=== PATIENT | male | born 1950 | race Caucasian/White ===

== ENCOUNTER 2017-06-11 19:37 | Emergency (ER) | payer OTHER ==
[~2017-06-11] VITALS: Ht 177.8 cm; Wt 149.7 kg
[~2017-06-11 19:37] MED LIST: Flomax0.4 MG PO; HYDACE5 PO; MECL25 PO; Percocet 5-3251 EACH PO; RXCYCL10 PO
[2017-06-11 20:04] LABS: BASOPHILS ABSOLUTE AUTO 0.04 K/mm3 (0.00-0.23); BASOPHILS PERCENT AUTO 0 % (0-2); EOSINOPHILS ABSOLUTE AUTO 0.24 K/mm3 (0.00-0.68); EOSINOPHILS PERCENT AUTO 2 % (0-6); Hematocrit 45.3 % (37.0-53.0); Hemoglobin 13.8 g/dL (13.5-17.5); IMMATURE GRAN ABSOLUTE AUTO 0.07 K/mm3 (0.00-0.10); IMMATURE GRAN PERCENT AUTO 1 % (0-1); LYMPHOCYTES ABSOLUTE AUTO 2.34 K/mm3 (0.84-5.20); LYMPHOCYTES PERCENT AUTO 21 % (21-46); MONOCYTES ABSOLUTE AUTO 0.66 K/mm3 (0.16-1.47); MONOCYTES PERCENT AUTO 6 % (4-13); Mean Corpuscular HGB 25.1 pg (26.0-34.0); Mean Corpuscular HGB Conc 30.5 g/dL (31.5-36.5); Mean Corpuscular Volume 83 fL (80-100); Mean Platelet Volume 10.8 fL (9.1-12.4); NEUTROPHILS ABSOLUTE AUTO 7.57 K/mm3 (1.96-9.15); NEUTROPHILS PERCENT AUTO 69 % (41-73); Platelet Count 292 K/mm3 (150-400); RDW Coefficient Variation 14.3 % (11.7-14.2); RDW Standard Deviation 42.9 fL (35.1-46.3); Red Blood Cell Count 5.49 M/mm3 (4.30-5.90); White Blood Cell Count 10.92 K/mm3 (4.00-11.30)
[2017-06-11 20:24] LABS: Alanine Aminotransfer (ALT/SGP 54 U/L (12-78); Albumin, Blood 3.4 g/dL (3.4-5.0); Albumin/Globulin Ratio 0.7 (0.8-1.8); Alk Phos 73 U/L (50-136); Anion Gap 5 mmol/L (6-16); Aspartate Aminotrans (AST/SGOT 52 U/L (12-37); Bilirubin, Total 0.3 mg/dL (0.1-1.0); Blood Urea Nitrogen 16 mg/dL (8-24); Bun/Creatinine Ratio 19.3 (12.0-20.0); CO2, Blood 26 mmol/L (21-32); Chloride, Blood 108 mmol/L (98-108); Creatinine, Blood 0.83 mg/dL (0.60-1.20); Glomerular Filtration Rate >60 (60-); Glucose, Blood 195 mg/dL (70-99); Potassium, Blood 3.9 mmol/L (3.5-5.5); Sodium, Blood 139 mmol/L (136-145); Total Protein, Blood 8.4 g/dL (6.4-8.2)
[2017-06-11 20:36] LABS: Source, Urine Clean Catch
[2017-06-11 20:41] LABS: Bilirubin, Urine Neg (Neg); Blood, Urine 1+ (Neg); Glucose Qualitative, Urine Neg (Neg); Ketones, Urine 1+ (Neg); Leukocyte Esterase, Urine 1+ (Neg); Nitrite, Urine Neg (Neg); Protein, Urine 1+ (Neg); Urobilinogen, Urine 1+ (Normal)
[2017-06-11 20:50] LABS: Color, Urine Yellow (P-Yellow)
[2017-06-11 20:51] LABS: Amorphous Light (0-Heavy); Appearance, Urine Hazy (Clear); Bacteria Few /hpf; Mucus Light (0-Heavy); Squamous Epithelial Cells Mod /hpf (Few)
[2017-06-11] MEDS ORDERED: CEPH500 PO (22:13)
== END 2017-06-11 22:27 | disposition home or self-care (01) ==
LOC: ER 19:37
PROVIDERS: Emergency Medicine; Physician Assistant
DX: R35.0 Frequency of micturition (principal); R10.12 Left upper quadrant pain; E66.01 Morbid (severe) obesity due to excess calories; Z87.891 Personal history of nicotine dependence; Z68.42 Body mass index [BMI] 45.0-49.9, adult
CPT/HCPCS: 36415; 74176; 80053; 81001; 85025; 87086; 87147; 96374; 96375; 99284; J1885; J2550

== ENCOUNTER 2018-06-07 09:21 | Observation (INO) | payer OTHER ==
[~2018-06-07] VITALS: Ht 177.8 cm; Wt 137.1 kg
[~2018-06-07 09:21] MED LIST changes: +CEPH500 PO
[2018-06-07 10:08] LABS: BASOPHILS ABSOLUTE AUTO 0.02 K/mm3 (0.00-0.23); BASOPHILS PERCENT AUTO 0 % (0-2); EOSINOPHILS ABSOLUTE AUTO 0.01 K/mm3 (0.00-0.68); EOSINOPHILS PERCENT AUTO 0 % (0-6); Hematocrit 41.4 % (37.0-53.0); Hemoglobin 12.6 g/dL (13.5-17.5); IMMATURE GRAN ABSOLUTE AUTO 0.03 K/mm3 (0.00-0.10); IMMATURE GRAN PERCENT AUTO 0 % (0-1); LYMPHOCYTES ABSOLUTE AUTO 0.76 K/mm3 (0.84-5.20); LYMPHOCYTES PERCENT AUTO 8 % (21-46); MONOCYTES ABSOLUTE AUTO 1.03 K/mm3 (0.16-1.47); MONOCYTES PERCENT AUTO 11 % (4-13); Mean Corpuscular HGB 25.7 pg (26.0-34.0); Mean Corpuscular HGB Conc 30.4 g/dL (31.5-36.5); Mean Corpuscular Volume 84 fL (80-100); Mean Platelet Volume 10.6 fL (9.1-12.4); NEUTROPHILS ABSOLUTE AUTO 7.33 K/mm3 (1.96-9.15); NEUTROPHILS PERCENT AUTO 80 % (41-73); Platelet Count 348 K/mm3 (150-400); RDW Coefficient Variation 15.9 % (11.7-14.2); RDW Standard Deviation 48.9 fL (35.1-46.3); Red Blood Cell Count 4.91 M/mm3 (4.30-5.90); White Blood Cell Count 9.18 K/mm3 (4.00-11.30)
[2018-06-07 10:27] LABS: Alanine Aminotransfer (ALT/SGP 25 U/L (12-78); Albumin, Blood 3.4 g/dL (3.4-5.0); Albumin/Globulin Ratio 0.8 (0.8-1.8); Alk Phos 66 U/L (50-136); Anion Gap 11 mmol/L (6-16); Aspartate Aminotrans (AST/SGOT 21 U/L (12-37); Bilirubin, Total 0.5 mg/dL (0.1-1.0); Blood Urea Nitrogen 36 mg/dL (8-24); Bun/Creatinine Ratio 15.9 (12.0-20.0); CO2, Blood 18 mmol/L (21-32); Calcium, Blood 8.1 mg/dL (8.5-10.1); Chloride, Blood 107 mmol/L (98-108); Creatinine, Blood 2.26 mg/dL (0.60-1.20); Globulin, Blood 4.5 g/dL (2.2-4.0); Glomerular Filtration Rate 31 (60-); Glucose, Blood 228 mg/dL (70-99); Potassium, Blood 3.6 mmol/L (3.5-5.5); Sodium, Blood 136 mmol/L (136-145); Total Protein, Blood 7.9 g/dL (6.4-8.2); Troponin I <0.015 ng/mL (0.000-0.040)
[2018-06-07] MEDS ORDERED: PIOG30 PO (10:51)
--- NOTE | 2018-06-07 16:18 | NUR ---
RECEIVED HANDOFF REPORT FROM ED NURSE VERONICA PT SOB AND DYSPNEIC W/ACTIVITY FOR PAST WEEK. PT LIVES AT HOME, SISTER IS CAREGIVER. ROOM AIR. FULL CODE. SISTER STATES PT MENTALLY DELAYED (10-12 YR OLD COGNITION). PT RAN TACHY IN ER - 100'S BPM. PT HAS IV IN LEFT AC 20 . ADA DIET. FLORENTINO HOSE/LOVENOX. HX: DIABETES 2. PT HAS HEMORRHOIDS. PT UNSTEADY ON HIS FEET. PT PREFERS TO LAY FLAT WHEN SOB. PT DOES NOT USE HIS CPAP (FAMILY STATES MACHINE CONFUSED THEM).
--- NOTE | 2018-06-07 18:29 | NUR ---
SHIFT SUMMARY 67 YR OLD MALE. FULL CODE. ADMITTED FOR SOB W/EXERTION AND DYSPNEA FOR PAST WEEK. PT HAS COGNITIVE CHALLENGES, LEARNING DISABILITIES. PT STOPPED USING CPAP DEVICE FAMILY STATED IT WAS TOO COMPLEX TO OPERATE. PT AND FAMILY HAVE STOPPED CERTAIN MEDICATIONS THEY WERE TOO EXPENSIVE. PT RECEIVING NS KCL AT 100 ML/HR. PT STILL REFUSING TO EAT HE IS WORRIED ABOUT NAUSEA. PHYSICAL THERAPY STATES HE IS A 1 ASSIST BUT MAY BE IMPULSIVE. BED ALARM IS ON.
[2018-06-08 05:30] LABS: BASOPHILS ABSOLUTE AUTO 0.01 K/mm3 (0.00-0.23); BASOPHILS PERCENT AUTO 0 % (0-2); EOSINOPHILS ABSOLUTE AUTO 0.01 K/mm3 (0.00-0.68); EOSINOPHILS PERCENT AUTO 0 % (0-6); Hematocrit 40.9 % (37.0-53.0); Hemoglobin 12.5 g/dL (13.5-17.5); IMMATURE GRAN ABSOLUTE AUTO 0.03 K/mm3 (0.00-0.10); IMMATURE GRAN PERCENT AUTO 1 % (0-1); LYMPHOCYTES PERCENT AUTO 20 % (21-46); MONOCYTES PERCENT AUTO 13 % (4-13); Mean Corpuscular HGB 25.7 pg (26.0-34.0); Mean Corpuscular HGB Conc 30.6 g/dL (31.5-36.5); Mean Corpuscular Volume 84 fL (80-100); Mean Platelet Volume 10.3 fL (9.1-12.4); NEUTROPHILS ABSOLUTE AUTO 3.54 K/mm3 (1.96-9.15); NEUTROPHILS PERCENT AUTO 66 % (41-73); Platelet Count 318 K/mm3 (150-400); RDW Coefficient Variation 15.9 % (11.7-14.2); Red Blood Cell Count 4.87 M/mm3 (4.30-5.90); White Blood Cell Count 5.39 K/mm3 (4.00-11.30)
[2018-06-08 05:45] LABS: Bun/Creatinine Ratio 24.6 (12.0-20.0); Calcium, Blood 8.4 mg/dL (8.5-10.1); Creatinine, Blood 1.75 mg/dL (0.60-1.20)
--- NOTE | 2018-06-08 06:44 | NUR ---
NOC SHIFT SUMMARY PT HAS BEEN PLEASANT AND COOPERATIVE WITH CARE THIS NIGHT. HE HAS STAYED IN BED AND MOSTLY SLEPT THIS NIGHT. EARLY IN THE MORNING HE AWOKE COMPLAINING OF STOMACH PAIN ON THE LEFT LOWER AND UPPER QUADRANTS. FEELS LIKE STOMACH IS TWISTING. STATES HE HAS HAD THIS PAIN BEFORE AND IT CAN LAST FOR DAYS. PT STATES HE HAD AN EXTRA LARGE BM ON PREVIOUS DAY. HE HAS NOT EATEN FOR PAST DAY OR TWO DUE TO FEAR OF VOMITING. TRIED ZOFRAN IV FOR FEELING OF STOMACH TWISTING WITH NO IMPROVMENT. CALLED TO HOSPITALIST AND RECIEVED ORDER FOR FENTYNAL FOR PAIN. PT IS CURRENTLY SLEEPING LIGHTLY IN BED. WILL REPORT TO ONCOMING RN.
--- NOTE | 2018-06-08 10:26 | NUR ---
PT STATUS PT IS REFUSING TO EAT, HE STATES THAT HE FEARS HE WILL THROW UP OR HIS TUMMY WILL START HURTING IF HE DOES. HIS FAMILY REPORTS THAT HE HAS BEEN REFUSING TO EAT AT HOME ALSO.
--- NOTE | 2018-06-08 15:55 | NUR ---
PT STATUS - EATING PT HAS NO TEETH. OFFICE MACHINE EMBOSSOGRAPH OPERATOR ORDERING SOFTER FOODS, IN THE HOPES THAT THIS WILL ENCOURAGE HIM TO EAT. PT DID EAT A SMALL AMOUNT OF HIS SOFT BURRITO AND SOME SOUP. HE HAS STATED HE HAS SEVERE PAIN SINCE EATING THOSE FOODS. MEDICATED PER EMAR. NONETHELESS, PT STILL COMPLAINING OF ABD. PAIN.
--- NOTE | 2018-06-08 18:18 | NUR ---
PT STATUS I ASKED ÁLVARO TO PLACE A HAT IN THE TOILET. TO RULE OUT A DIFFERENT ISSUE WITH THIS STOMACH PAIN. I WANTED TO VIEW STOOL MYSELF. WITH THE NEXT BOWEL MOVEMENT, ÁLVARO REPORTED LARGE CLOT IN WATERY STOOL. SHE HAD ALREADY DUMPED THE HAT IN TOILET AND FAILED TO COLLECT CLOT. STOOL SMELLS LIKE ROTTEN BOWEL. CALLED HOSPITALIST AND HE ORDERED GI PANEL/GUAIAC TEST. THOSE SAMPLES HAVE BEEN SENT.
--- NOTE | 2018-06-08 19:26 | NUR ---
SHIFT SUMMARY 67 YR OLD MALE ADMITTED FOR ARF. DEVELOPMENTALLY DELAYED. FULL CODE. PT STATING SEVERE ABDOMINAL PAIN AND NAUSEA. PT'S IV WENT BAD TODAY, NEW ONE PLACED. IV FENTANYL ONLY SEEMS TO WORK BRIEFLY ON HIS ABD PAIN, THEN PAIN RETURNS. TWO GI/STOOL SAMPLES SENT FOR ANALYSIS. RECEPTIONIST NURSE SAW A BLOOD CLOT BUT DID NOT CAPTURE IT FOR SAMPLE. PT'S STOOL SMELLS LIKE ROTTING BOWEL. PT AGAIN REFUSING TO EAT TONIGHT HIS ABD PAIN RETURNED WHEN HE TRIED TO EAT LUNCH. HE LIVES AT HOME WITH HIS SISTERS WHO ARE HIS CAREGIVERS. HX: DIABETES 2.
[2018-06-08 19:35] LABS: Stool Occult Blood Guaiac 1 Pos (Neg)
[2018-06-08 20:24] LABS: Adenovirus F 40/41 Not Detected (NOT DETECT); Astrovirus Not Detected (NOT DETECT); Campylobacter Sp Not Detected (NOT DETECT); Cryptosporidium Not Detected (NOT DETECT); Cyclospora Cayetanensis Not Detected (NOT DETECT); E. Coli O157 Not Detected (NOT DETECT); Entamoeba Histolytica Not Detected (NOT DETECT); Enteroaggregative E. coli-EAEC Not Detected (NOT DETECT); Enteropathogenic E. coli-EPEC Not Detected (NOT DETECT); Enterotoxigenic E. coli-ETEC Not Detected (NOT DETECT); Giardia Lamblia Not Detected (NOT DETECT); Norovirus GI/GII Not Detected (NOT DETECT); Plesiomonas Shigelloides Not Detected (NOT DETECT); Rotavirus A Detected (NOT DETECT); Salmonella Sp Not Detected (NOT DETECT); Sapovirus Not Detected (NOT DETECT); Shiga Toxin-prod E. coli-STEC Not Detected (NOT DETECT); Shigella/Enteroin E. coli-EIEC Not Detected (NOT DETECT); Vibrio Cholerae Not Detected (NOT DETECT); Vibrio Sp Not Detected (NOT DETECT); Yersinia Enterocolitica Not Detected (NOT DETECT)
--- NOTE | 2018-06-09 04:51 | NUR ---
NOC SHIFT SUMMARY PT HAS BEEN PLEASANT AND COOPERATIVE WITH CARE THIS NIGHT. NO COMPLAINTS OF PAIN OR DISCOMFORT. HAS SLEPT MOST OF THE NIGHT. DID GET UP TO TAKE A SHOWER EARLY IN THE MORNING. STOOL CX CAME BACK POSITIVE FOR ROTA VIRUS. PT CURRENTLY SLEEPING. BREATHS ARE EVEN AND UNLABORED. APPEARS IN NO ACUTE DISTRESS. WILL CONTINUE TO MONITOR.
[2018-06-09 07:15] LABS: Anion Gap 5 mmol/L (6-16); Blood Urea Nitrogen 30 mg/dL (8-24); CO2, Blood 23 mmol/L (21-32); Chloride, Blood 109 mmol/L (98-108); Glomerular Filtration Rate >60 (60-); Glucose, Blood 129 mg/dL (70-99); Potassium, Blood 3.8 mmol/L (3.5-5.5); Sodium, Blood 137 mmol/L (136-145)
[2018-06-09 11:44] LABS: BASOPHILS PERCENT AUTO 0 % (0-2); EOSINOPHILS ABSOLUTE AUTO 0.21 K/mm3 (0.00-0.68); EOSINOPHILS PERCENT AUTO 4 % (0-6); Hematocrit 36.2 % (37.0-53.0); Hemoglobin 10.9 g/dL (13.5-17.5); IMMATURE GRAN ABSOLUTE AUTO 0.02 K/mm3 (0.00-0.10); IMMATURE GRAN PERCENT AUTO 0 % (0-1); LYMPHOCYTES PERCENT AUTO 31 % (21-46); MONOCYTES ABSOLUTE AUTO 0.59 K/mm3 (0.16-1.47); MONOCYTES PERCENT AUTO 12 % (4-13); Mean Corpuscular HGB Conc 30.1 g/dL (31.5-36.5); Mean Corpuscular Volume 86 fL (80-100); Mean Platelet Volume 10.6 fL (9.1-12.4); NEUTROPHILS ABSOLUTE AUTO 2.51 K/mm3 (1.96-9.15); NEUTROPHILS PERCENT AUTO 52 % (41-73); Platelet Count 246 K/mm3 (150-400); RDW Coefficient Variation 15.9 % (11.7-14.2); RDW Standard Deviation 49.9 fL (35.1-46.3); Red Blood Cell Count 4.19 M/mm3 (4.30-5.90); White Blood Cell Count 4.83 K/mm3 (4.00-11.30)
--- NOTE | 2018-06-09 15:25 | NUR ---
SUMMARY PT IS PLEASANT/COOPERATIVE, SOMEWHAT CHILDLIKE AFFECT W HX DEVLOPMENTAL DELAY. HE WAS UP PARTICIPATE WITH MARIA GUADALUPE THIS AM, SBA TO BR, GAIT STEADY. BISI STOOL +, DR BOLAND ORDER GI CONSULT, SPOKE WITH DR THONY GARCIA- TODAY. PT CONTINUES ON ADA DIET, THIS AM STATE TOLERATING WELL, NO NAUSEA OR ABD PAIN HOWEVER @ LUNCHTIME HE STARTED TO EAT THEN STOP STATINEG "BURNING" MID ABD PAIN, PRN FENTANYL 25MCG GIVEN FOR RELIEF. SUPPORTIVE FAMILY HAS BEEN WITH PT T/O DAY. COOK HELPER FRUIT ASSIST HIM TO SHOWER THIS AFTERNOON. VSS.
--- NOTE | 2018-06-09 16:53 | NUR ---
DR BHANDARI IN TO SEE PT/FAMILY, STATE NEED FOR EGD, EXPLAIN PROCEDURE, PT/FAMILY AGREEABLE. DR CONNELLY WILL PLACE ORDERS & PLAN FOR PROCEDURE TOMORROW AFTERNOON APPROX 1600.
--- NOTE | 2018-06-10 05:20 | NUR ---
SHIFT SUMMARY: NO ACUTE CHANGES TONIGHT. PT IS A&O, SBA TO BR. PT HAS HX OF DEVELOPMENTAL DELAY AND LIVES AT HOME c SISTER. NO BM TONIGHT, PT HAD POS OCCULT STOOL 06/09. ABDOMEN IS DISTENDED IN FIRM BUT PT REPORTS THIS IS NORMAL FOR HIM. PT DENIES ANY NAUSEA OR ABDOMEN PAIN. WILL CONT TO MONITOR AND PROVIDE CARE UNTIL PRESUMED BY ONCOMING RN.
[2018-06-10 09:57] LABS: Hemoglobin 10.8 g/dL (13.5-17.5)
--- NOTE | 2018-06-10 15:54 | NUR ---
SUMMARY PT STATE NO ABD PAIN, NO NAUSEA THIS AM. HE IS PLEASANT/COOPERATIVE. REVIEWED NEED FOR NPO STATUS & EGD THIS AFTERNOON. ORAL SWABS PROVIDED. FAMILY HAS BEEN SUPPORTIVE, @ BEDSIDE T/O DAY. VSS. ASSISTANT BRANCH OPERATIONS MANAGER UP TO TAKE PT OUT FOR PROCEDURE APPROX 1600.
--- NOTE | 2018-06-10 16:00 | NUR ---
INTO SDS VIA ForMuneMURRAY. PT A&0X3. DENIES PAIN. PT APPEARS SOMEWHAT APPREHENSIVE. FAMILY AT BEDSIDE-PT HAS DEVELOPMENTAL DELAY-APROXIMATELY 10-12 YEARS OF AGE.HISTORY AND ALLERGIES REVIEWED. NPO STATUS CONFIRMED.PT IN CONTACT ISOLATION.
--- NOTE | 2018-06-10 16:27 | NUR ---
06/10/18 1627 Jose Polo Bite Block PlacedPatient to ENDO 1History, Chart, Medications and Allergies reviewed before start of procedure.MONITOR INTACT WITH CONTINUOUS PULSE OXIMETRY AND INTERMITTENT BP.O2 VIA N/C INTACT THROUGHOUT SEDATION/PROCEDURE.See Anesthesia record.
--- NOTE | 2018-06-10 18:41 | NUR ---
EGD COMPLETED. ELLYN BEVEL MILL OPERATOR STATE NO ACTIVE BLEED, TOOK BIOPSIES & REMOVED POLYP. ORDER CL DIET FOR TONITE. RN REPORT & FAMILY STATE NOT PLANNING FOR COLONOSCOPY @ THIS TIME. ORDER FOR MAG CITRATE X1 QUESTIONED HOWEVER DR BHANDARI LEFT FOR THE NITE. DEPUTY ASSESSOR GI, DR FIELDS NOTIFIED, STATE HOLD MAG CITRATE FOR NOW, HE WILL REVIEW & CALL BACK. SURVEY ASSOCIATE NOTIFIED.
--- NOTE | 2018-06-11 07:49 | NUR ---
SHIFT SUMMARY PT ALERT T/O SHIFT. VSS. PT UP TO TOILET BM X3; FIRST BM FORMED; LAST BM BROWN, CLOUDY, LIQUID. PT DENIES ABD PAIN, NAUSEA AND SOB; RA. ABD SOFT; BTX4 CLEAR DIET. PT SHOWERED X2. REPORT GIVEN TO DAY SHIFT RN.
--- NOTE | 2018-06-11 09:38 | NUR ---
DR LYON IN TO SEE PT THIS AM AND REPORTED HE WILL BE DISCHARGING PT HOME WITH SISTER. DR LYON CALLED AND NOTIFIED FAMILY OF DISCHARGE. TYRELL FROM DR GILLIS OFFICE CALLED AND REPORTED DR BHANDARI WAS PLANNING ON DOING A COLONOSCOPY THIS AFTERNOON ON THE PT. PT AND SISTER SHAWNA IN AGREEANCE OF THIS. DR LYON NOTIFIED WHO REPORTS PT IS TO BE DISCHARGED HOME AND THE COLONOSCOPY CAN BE COMPLETED AN OUTPATIENT. TYRELL FROM [facility] OFFICE NOTIFIED THAT PT WILL BE DISCHARGED AND SHE REPORTS SHE WILL CALL PT/ SISTER TO SCHEDULE AN OUTPATIENT COLONOSCPY.
--- NOTE | 2018-06-11 11:38 | NUR ---
DISCHARGE INSTRUCTIONS AND IV DC'D BY RN STUDENT SHAHBAZ. PT DC'D HOME AT 1100 WITH SISTER, ESCORTED OUT VIA W/C.
== END 2018-06-11 11:00 | disposition home health service (06) ==
LOC: ER 09:21 → MEDS 09:22 → ER 11:28 → MEDS 11:28 → EDPENDDIS 06-11 08:55 → ENPENDDIS 06-11 08:55 → MEDS 06-11 11:00
PROVIDERS: Emergency Medicine; Internal Medicine Gastroenterology; ADMIT Hospitalist
PROC: 0DB68ZX Excision of Stomach, Via Natural or Artificial Opening Endoscopic, Diagnostic (ICD-10-PCS; principal; 2018-06-10 16:45)
PROC: 0DB98ZX Excision of Duodenum, Via Natural or Artificial Opening Endoscopic, Diagnostic (ICD-10-PCS; principal; 2018-06-10 16:45)
PROC: 3E0G8GC Introduction of Other Therapeutic Substance into Upper GI, Via Natural or Artificial Opening Endoscopic (ICD-10-PCS; principal; 2018-06-10 16:45)
DX: K29.60 Other gastritis without bleeding (principal); K31.7 Polyp of stomach and duodenum; N17.9 Acute kidney failure, unspecified; E86.0 Dehydration; K80.20 Calculus of gallbladder without cholecystitis without obstruction; K64.9 Unspecified hemorrhoids; B34.9 Viral infection, unspecified; I10 Essential (primary) hypertension; E11.9 Type 2 diabetes mellitus without complications; R62.50 Unspecified lack of expected normal physiological development in childhood
CPT/HCPCS: 36415; 71045; 76770; 80048; 80053; 82272; 82947; 83880; 84484; 85014; 85018; 85025; 87081; 87507; 93005; 93010; 96360; 96361; 96374; 97110; 97116; 97161; 97530; 99285-25; G0378; J1650; J2405; J2704; J3010; J3480; J7030; J7120

== ENCOUNTER 2018-07-21 12:53 | Day surgery (SDC) | payer OTHER ==
[~2018-07-21] VITALS: Ht 177.8 cm; Wt 134.2 kg
[~2018-07-21 12:53] MED LIST changes: +ATOR40TA PO; +LISINOPRIL/HCTZ PO; +METF500 PO; +PIOG30 PO
[2018-07-21] MEDS ORDERED: PIOG45 PO (14:16)
[2018-07-23 06:11] LABS: IMMUNOGLOBULIN A, QN, SERUM 222 mg/dL (61-437)
[2018-07-23 14:06] LABS: ENDOMYSIAL ANTIBODY IGA Negative (Negative)
== END 2018-07-21 16:08 | disposition home or self-care (01) ==
LOC: ORSCSDS 12:53
PROVIDERS: Internal Medicine Gastroenterology
PROC: 0DBM8ZX Excision of Descending Colon, Via Natural or Artificial Opening Endoscopic, Diagnostic (ICD-10-PCS; principal; 2018-07-21 14:30)
PROC: 0DBK8ZX Excision of Ascending Colon, Via Natural or Artificial Opening Endoscopic, Diagnostic (ICD-10-PCS; principal; 2018-07-21 14:30)
DX: Z12.11 Encounter for screening for malignant neoplasm of colon (principal); D12.2 Benign neoplasm of ascending colon; D12.4 Benign neoplasm of descending colon; K64.4 Residual hemorrhoidal skin tags; K57.30 Diverticulosis of large intestine without perforation or abscess without bleeding; G47.33 Obstructive sleep apnea (adult) (pediatric); I10 Essential (primary) hypertension; E11.9 Type 2 diabetes mellitus without complications; E66.9 Obesity, unspecified; Z68.41 Body mass index [BMI] 40.0-44.9, adult; Z79.899 Other long term (current) drug therapy
CPT/HCPCS: 82784; 82947; 83516; 86255; 88305; J2704; J7120

== ENCOUNTER 2018-10-29 13:53 | Inpatient (IN) | payer OTHER ==
[~2018-10-29] VITALS: Ht 172.7 cm; Wt 133.7 kg
[~2018-10-29 13:53] MED LIST changes: -ATOR80 PO; -Aspir 8181 MG PO; -CLOP75 PO; -LISI5 PO; -METO25 PO; -NITR.4SL SL; -PANT20 PO; -PIOGLITAZONE HC30 MG PO; -Preparation H C26 GM PR; -ZESTORETIC 20-251 EA
[2018-10-29] MEDS ORDERED: ATOR40TA PO (14:04)
[2018-10-29] MEDS ORDERED: METF500 PO (14:05)
[2018-10-29] MEDS ORDERED: PIOGLITAZONE HC30 MG PO (14:05)
[2018-10-29] MEDS ORDERED: ZESTORETIC 20-251 EA (14:05)
[2018-10-29] MEDS ORDERED: LISI5 PO (14:05)
[2018-10-29 14:43] LABS: International Normalized Ratio 1.02; Prothrombin Time Results 10.8 Sec (9.7-11.5)
--- NOTE | 2018-10-29 19:08 | NUR ---
Echocardiogram completed.
--- NOTE | 2018-10-29 19:42 | NUR ---
ADMIT NOTE RECEIVED REPORT FROM KAITLIN MCKEON IN ED. PT TO ROOM VIA GURNEY AT 1740. PT TRANSFERED TO BED WITH SBA. FAMILY AND PT REPORT PT HAS BEEN SOB AND WITH INTERMITTENT CHEST PAIN RADIATING TO BACK FOR THE LAST THREE DAYS. PT S[facility] OVER [facility]IA [facility] [place] TO ELEVATED TROP. PT A&Ox3, UNABLE TO STATES DATE/YEAR OR CURRENT PRESIDENT. WALESKA MATOS AT BEDSIDE STATES THIS IS BASELINE FOR PT. WHEN ASKED QUESTIONS PT LOOKS TO FAMILY TO ANSWER. PT WILL ANSWER QUESTIONS EVEN WHEN HE DOES NOTE UNDERSTAND THE QUESTION. PT DENIES CHEST PAIN/PRESSURE, BACK PAIN, DIZZINESS/LIGHTHEADEDNESS, SOB AND NAUSEA AT THIS TIME. PT HAS NITRO PASTE ON RIGHT UPPER CHEST. VSS. NO OTHER ACUTE CHANGES NOTED. PT LIVES AT HOME WITH HIS BROTHER WHO HELPS WITH ADL, PT IS ABLE TO COMPELTED IADLS. VSS. REPORTS GIVEN TO ONCOMING KAITLIN.
[2018-10-29 23:01] LABS: Creatine Kinase MB Index 9.4 (0.0-4.0)
[2018-10-29 23:08] LABS: Troponin I 3.28 ng/mL (0.000-0.040)
--- NOTE | 2018-10-29 23:33 | NUR ---
CRITICAL TROPONIN NURSE PRACTIONRACHEL HENNESSY CALLED AND NOTIFIED OF PATIENT'S CRITICAL TROPONIN VALUE. ALSO NOTIFIED ALVINO HENNESSY THAT NO FURTHER TROPONINS ARE ORDERED AT THIS TIME. PATIENT CURRENTLY DENIES ANY CHEST PAIN. NURSE PRACTIONER MINOO STATED SHE WOULD ASSESS PATIENT'S CHART AND ENTER ORDERS IF THEY WERE NEEDED.
[2018-10-30 06:09] LABS: Hematocrit 31.7 % (37.0-53.0); Hemoglobin 9.6 g/dL (13.5-17.5); Mean Corpuscular HGB 24.6 pg (26.0-34.0); Mean Corpuscular HGB Conc 30.3 g/dL (31.5-36.5); Mean Corpuscular Volume 81 fL (80-100); Mean Platelet Volume 10.1 fL (9.1-12.4); Platelet Count 271 K/mm3 (150-400); RDW Coefficient Variation 15.2 % (11.7-14.2); RDW Standard Deviation 44.5 fL (35.1-46.3); Red Blood Cell Count 3.91 M/mm3 (4.30-5.90); White Blood Cell Count 9.62 K/mm3 (4.00-11.30)
[2018-10-30 06:33] LABS: Alanine Aminotransfer (ALT/SGP 16 U/L (12-78); Albumin, Blood 2.8 g/dL (3.4-5.0); Albumin/Globulin Ratio 0.7 (0.8-1.8); Alk Phos 71 U/L (50-136); Anion Gap 6 mmol/L (6-16); Aspartate Aminotrans (AST/SGOT 24 U/L (12-37); Bilirubin, Total 0.7 mg/dL (0.1-1.0); Blood Urea Nitrogen 17 mg/dL (8-24); Bun/Creatinine Ratio 18.3 (12.0-20.0); CHOL/HDL RATIO 3.9; CO2, Blood 26 mmol/L (21-32); CPK Creatine Kinase 119 U/L (39-308); Calcium, Blood 8.3 mg/dL (8.5-10.1); Chloride, Blood 108 mmol/L (98-108); Cholesterol 98 mg/dL (50-200); Creatine Kinase MB 9.9 ng/mL (0.0-3.6); Creatine Kinase MB Index 8.3 (0.0-4.0); Creatinine, Blood 0.93 mg/dL (0.60-1.20); Globulin, Blood 3.9 g/dL (2.2-4.0); Glomerular Filtration Rate >60 (60-); Glucose, Blood 115 mg/dL (70-99); HDL Cholesterol 25 mg/dL (>39); Low Density Lipoprotein Chol 51 mg/dL (0-110); Phosphorus, Blood 3.6 mg/dL (2.5-4.9); Potassium, Blood 4.2 mmol/L (3.5-5.5); Sodium, Blood 140 mmol/L (136-145); Total Protein, Blood 6.7 g/dL (6.4-8.2); Triglycerides 111 mg/dL (30-160); Very Low Density Lipoprot Chol 22 mg/dL (6-32)
--- NOTE | 2018-10-30 07:43 | NUR ---
SHIFT SUMMARY PATIENT PLEASENT AND COOPERATIVE THROUGHOUT THE NIGHT. PATIENT FORGETFUL AT TIMES. PATIENT ABLE TO STATE HIS NAME, AND MONTH AND YEAR. HOWEVER, PATIENT UNABLE TO STATE YEAR, CURRENT DATE, OR PRESIDENT. PATIENT CONTINUES TO DENY ANY CHEST PAIN THIS MORNING. PATIENT APPEARED TO SLEEP WELL THROUGHOUT THE NIGHT LAST NIGHT. HEPARIN GTT AND IV FLUIDS RUNNING PER ORDERS. VITAL SIGNS CHARTED. REPORT GIVEN TO ONCOMING RN.
[2018-10-30 11:23] LABS: Hemoglobin 10.1 g/dL (13.5-17.5)
--- NOTE | 2018-10-30 14:00 | NUR ---
PT UPDATE... PER CARDIOLOGY PROVIDER PT IS NOT TO HAVE ANGIO DONE TODAY, PT'S H&H LEVELS ARE LOW AND PROVIDER WOULD LIKE TO CHECK FOR OCCULT BLOOD IN THE PT'S STOOL PRIOR TO ANGIO. PT HAS LONG HX OF HEMORRHOIDS PER THE PT'S SISTER. PT WAS GIVEN HIS LUNCH AND WILL BE NPO AFTER MIDNIGHT TONIGHT.
[2018-10-30 18:18] LABS: Stool Occult Blood Guaiac 1 Pos (Neg)
--- NOTE | 2018-10-30 18:54 | NUR ---
SHIFT SUMMARY. NO ACUTE CHANGES NOTED THIS SHIFT. PT DENIES CHEST PAIN T/O SHIFT. NO ST CHANGES NOTED ON TELE AND NO CARDIAC EVENTS. PT IS TO BE NPO AFTER MIDNIGHT FOR POSSIBLE ANGIO IN THE MORNING AFTER H&H RESULTS ARE GIVEN TO MAINSPRING FABRICATION SUPERVISOR. PT'S VS STABLEL T/O SHIFT. PT HAS HAS MULTIPLE FAMILY AT THE BEDSIDE. PT HAD LARGE SOFT, LIGHT BROWN BM THIS SHIFT, BM HAD APROX 20MLS OF SOLOMON RED BLOOD, PT REPORTS HX OF BLEEDING HEMORRHIODS FOR "A LONG TIME." NO OTHER S/SX OF BLEEDING AT THIS TIME. CALL LIGHT IN REACH, BED IS LOCKED AND LOW WITH BED ALARM ON WILL CONITNUE TO MONITOR UNTIL REPORT IS GIVEN TO ONCOMING RN.
[2018-10-31 04:09] LABS: BASOPHILS ABSOLUTE AUTO 0.02 K/mm3 (0.00-0.23); BASOPHILS PERCENT AUTO 0 % (0-2); EOSINOPHILS PERCENT AUTO 4 % (0-6); Hematocrit 29.8 % (37.0-53.0); IMMATURE GRAN ABSOLUTE AUTO 0.03 K/mm3 (0.00-0.10); IMMATURE GRAN PERCENT AUTO 0 % (0-1); LYMPHOCYTES ABSOLUTE AUTO 2.26 K/mm3 (0.84-5.20); LYMPHOCYTES PERCENT AUTO 27 % (21-46); MONOCYTES ABSOLUTE AUTO 0.67 K/mm3 (0.16-1.47); MONOCYTES PERCENT AUTO 8 % (4-13); Mean Corpuscular HGB 25.1 pg (26.0-34.0); Mean Corpuscular HGB Conc 30.2 g/dL (31.5-36.5); Mean Corpuscular Volume 83 fL (80-100); Mean Platelet Volume 10.4 fL (9.1-12.4); NEUTROPHILS ABSOLUTE AUTO 4.99 K/mm3 (1.96-9.15); NEUTROPHILS PERCENT AUTO 60 % (41-73); Platelet Count 250 K/mm3 (150-400); RDW Coefficient Variation 15.2 % (11.7-14.2); RDW Standard Deviation 46.4 fL (35.1-46.3); Red Blood Cell Count 3.59 M/mm3 (4.30-5.90); White Blood Cell Count 8.27 K/mm3 (4.00-11.30)
--- NOTE | 2018-10-31 06:52 | NUR ---
SHIFT SUMMARY PATIENT PLEASENT AND COOPERATIVE THROUGHOUT THE NIGHT. PATIENT HAS DENIED ANY CHEST PAIN LAST NIGHT. PATIENT APPEARED TO SLEEP WELL LAST NIGHT. HEPARIN GTT AND IV FLUIDS RUNNING PER ORDERS. PATIENT HAS BEEN NPO SINCE 0000 FOR POSSIBLE PROCEDURE TODAY. VITAL SIGNS CHARTED. PATIENT CURRENTLY APPEARS TO BE ASLEEP. WILL CONTINUE TO MONITOR PATIENT AND REPORT TO ONCOMING RN.
--- NOTE | 2018-10-31 08:15 | NUR ---
AM NOTE ASSUMED CARE OF PT APROX 0700, PT IS NPO FOR POSSIBLE ANGIO TODAY, CARDIDOLOGY IS WAITING ON H&H RESULTS BEFORE TAKING HIM TO DATABASE CONSULTANT OR CALLING GI PROVIDER IN ON THE CASE D/T RECTAL BLEEDING. PT'S VS STABLE, PT DENIES ANY CHEST PAIN AT ALL SINCE ADMIT. PT HAS BEEN SBA TO THE BATHROOM TO VOID. PT HAS NOT HAD ANOTHER BM SINCE DAY SHIFT YESTERDAY. WILL CONTINUE TO MONITOR.
--- NOTE | 2018-10-31 12:45 | NUR ---
PT UPDATE... CARDIOLOGY PROVIDER SAW PT'S LABS THIS AM. PT'S H&H DROPPED SLIGHTLY. PT HAS BEEN ON HEPARIN GTT SINCE ADMIT. PT HAS NOT HAD ANY CHEST PAIN SINCE ADMIT. CARDIOLOGY PROVIDER GAVE THIS RN VERBAL ORDERS TO STOP THE HEPARIN GTT AND CALL IN GI CONSULT TO IDENTIFY THE SOURCE OF THE LOW H&H PRIOR TO ANGIO. WILL CONTINUE TO MONITOR.
--- NOTE | 2018-10-31 13:27 | NUR ---
Patient is lying in bed and alert with sister, Yolie, bedside. Patient tells me about the events that led to his ambulance ride to the hospital. Patient explains about the delay in his surgery due to low blood pressure. Patient and sister speak of their concerns about all that is happening and that it all feels, "scary." I listen empathically, explore adventism beliefs and provide inspirational quotes, grief support and prayer. Patient and Yolie respond well and show signs of increased peace and reduced stress.
[2018-10-31 16:34] LABS: Hemoglobin 9.9 g/dL (13.5-17.5)
--- NOTE | 2018-10-31 18:23 | NUR ---
SHIFT SUMMARY. NO ACUTE CHANGES NOTED THIS SHIFT. PT HAS DENIED CHEST PAIN T/O SHIFT. NO EVENTS NOTED ON TELE OR ST CHANGES. PT'S VS STABLE. PT HAS HAD FAMILY AT THE BEDSIDE T/O SHIFT. PT HAS NOT HAD A BM TODAY AND NO RECTAL BLEEDING IS NOTED. PT WAS SEEN BY GI PROVIDER AND IS TO BE ON CLEAR LIQUIDS UNTIL MIDNIGHT, THEN NPO FOR FLEX-SIG AND EGD IN THE AM APROX 1000 PER PROVIDER. PT IS AGREEABLE TO THIS PLAN OF CARE. CALL LIGHT IN REACH, BED IS LOCKED AND LOW WILL CONTINUE TO MONITOR UNTIL REPORT IS GIVEN TO ONCOMING RN.
--- NOTE | 2018-10-31 22:28 | NUR ---
ASSUMED CARE OF PATIENT AT APPROXIMATELY 1910 FROM REGINO Renee RN. PATIENT ALERT AND ORIENTED TO SELF, FAMILY AND SURROUNDINGS. PATIENT DENIES PAIN, NUMBNESS, TINGLING AND DIZZINESS. PATIENT SBA OUT OF BED. SOME WEAKNESS NOTED. NPO AT MIDNIGHT FOR FLEX SIG/EGD IN AM. PIV S/L. NSR ON TELE; OXYGEN SATURATION ABOVE 90% ON ROOM AIR. PATIENT CURRENTLY RESTING IN BED; CALL LIGHT IN REACH; BED IN LOWEST POSISTION; BED ALARM ON; WILL CONTINUE TO MONITOR AND ASSESS UNTIL END OF SHIFT.
[2018-11-01 03:56] LABS: Hematocrit 31.8 % (37.0-53.0); Hemoglobin 9.6 g/dL (13.5-17.5)
[2018-11-01 04:43] LABS: Albumin, Blood 2.8 g/dL (3.4-5.0); Anion Gap 6 mmol/L (6-16); Blood Urea Nitrogen 15 mg/dL (8-24); Bun/Creatinine Ratio 16.6 (12.0-20.0); CO2, Blood 27 mmol/L (21-32); Calcium, Blood 8.6 mg/dL (8.5-10.1); Chloride, Blood 107 mmol/L (98-108); Creatinine, Blood 0.91 mg/dL (0.60-1.20); Glomerular Filtration Rate >60 (60-); Glucose, Blood 92 mg/dL (70-99); Phosphorus, Blood 3.5 mg/dL (2.5-4.9); Potassium, Blood 3.9 mmol/L (3.5-5.5); Sodium, Blood 140 mmol/L (136-145)
--- NOTE | 2018-11-01 06:35 | NUR ---
PATIENT SLEPT ABOUT NINE HOURS LAST NIGHT. SBA TO BATHROOM. PATIENT GIVEN ENEMA PER ORDER; LOOSE BROWN BM WITH MODERATE AMOUNT OF RED BLOOD NOTED IN TOILET WATER. VSS. WILL CONTINUE TO MONITOR AND ASSESS UNTIL END OF SHIFT.
--- NOTE | 2018-11-01 09:30 | NUR ---
FROM PCU TO [facility] ADMISSION TO UNIT STARTED. History, Chart, Medications and Allergies reviewed before start of procedure.Patient confirms NPO status and agrees with scheduled surgery.
--- NOTE | 2018-11-01 09:51 | NUR ---
11/01/18 0951 Jose Polo Bite Block Placed3-LEAD EKG REVIEWED WITH PHYSICIAN PRIOR TO START OF PROCEDURE.Patient to ENDO 1History, Chart, Medications and Allergies reviewed before start of procedure.MONITOR INTACT WITH CONTINUOUS PULSE OXIMETRY AND INTERMITTENT BP.O2 VIA N/C INTACT THROUGHOUT SEDATION/PROCEDURE.See Anesthesia record
--- NOTE | 2018-11-01 10:19 | NUR ---
CALL TO RESIDENT ATHLETIC TRAINER TO GIVE REPORT.
--- NOTE | 2018-11-01 10:25 | NUR ---
REPORT GIVEN PATIENT TO PCU WITH RN REPORT TO LUIS ALBERTO MADRIGAL
--- NOTE | 2018-11-01 15:53 | NUR ---
SHIFT SUMMARY PT RESTING IN BED THROUGHOUT THE DAY. UP TO BATHROOM INDEPENDENTLY. ALERT AND ORIENTED TO SELF, PLACE, AND FAMILY. FOLLOWING COMMANDS APPROPRIATELY. EGD / PARTIAL COLONOSCOPY COMPLETED IN DAY SURGERY, PT TOLERATED WELL. LUNG SOUNDS CLEAR, NSR RATE 60s PER TELEMETRY. PT CONSENTED BY DR. GO FOR ANGIOGRAM IN AM. NPO AFTER MIDNIGHT. FAMILY AT BEDSIDE. WILL CONTINUE TO MONITOR.
--- NOTE | 2018-11-01 17:06 | NUR ---
VERY PLEASANT PT W DEVELOPMENTAL DELAYS RESTING IN BED W/O COMPLAINTS. VSS. PT EXCITED TO EAT DINNER BUT UNDERSTANDS THAT HE WILL HAVE NOTHING BY MOUTH AFTER MIDNIGHT FOR ANGIOGRAM IN THE AM. VSS.
--- NOTE | 2018-11-01 20:18 | NUR ---
ASSUMED CARE OF PATIENT AT APPROXIMATELY 1910 FROM BILLY Ni RN. PATIENT ALERT AND ORIENTED TO SELF, FAMILY AND SURROUNDINGS. PATIENT DENIES PAIN, NUMBNESS, TINGLING AND DIZZINESS. PATIENT HAS BEEN INDEPENDENT TO BATHROOM TODAY; S/P EGD AND FLEX SIG NO INTERVENTIONS; SEVERE HEMRROIDS REPORTED. NPO AT MIDNIGHT FOR ANGIO IN AM. PIV S/L. NSR ON TELE; OXYGEN SATURATION ABOVE 90% ON ROOM AIR. PATIENT CURRENTLY RESTING IN BED; CALL LIGHT IN REACH; BED IN LOWEST POSISTION; BED ALARM ON; WILL CONTINUE TO MONITOR AND ASSESS UNTIL END OF SHIFT.
--- NOTE | 2018-11-02 07:12 | NUR ---
PATIENT SLEPT ABOUT NINE HOURS LAST NIGHT. VSS. NPO SINCE MIDNGHT. REPORT GIVEN TO HAILY MADRIGAL.
--- NOTE | 2018-11-02 08:35 | NUR ---
AM NOTE. ASSUMED CARE OF PT APROX 0700, PT IS A&Ox4 WITH DEVELOPMENTAL DELAYS AND FORGETFUL AT TIMES. PT WAS ADMTITED FOR NSTEMI. PT IS GOING FOR ANGIO THIS AM AND HAS BEEN NPO SINCE MIDNIGHT. PT HAS DENIED ANY CHEST PAIN/PRESSURE AT THIS TIME. PT'S VS STABLE. L/S CLEAR T/O ON RA. BT PRESENT AND HYPERACTIVE, ABD IS SOFT AND NONTENDER TO PALP. PT'S SISTER IS AT THE BEDSIDE. WILL CONTINUE TO MONITOR.
[2018-11-02 09:00] LABS: Hemoglobin 10.4 g/dL (13.5-17.5)
--- NOTE | 2018-11-02 18:04 | NUR ---
SHIFT SUMMARY. NO ACUTE CHANGES NOTED THIS SHIFT. PT WAS TAKEN TO THE COLLEGE INSTRUCTOR AND HAD 1 SENT PLACED IN THE MID RAMUS. PT HAS RIGHT RADIAL SITE WITH TR BAND. SITE IS C/D/I NO BLEEDING, SWELLING OR HEMATOMA NOTED. PT DENIES ANY NUMB/TINGLING TO HIS RIGHT HAND/FINGERS AND THERE IS GOOD CAP REFIL. PT'S VS STABLE. PT DENIES CHEST PAIN/PRESSURE. PT WALKS TO THE BATHROOM TO VOID AND HAS NOT HAD A BM THIS SHIFT. CALL LIGHT IN REACH, BED IS LOCKED AND LOW WILL CONTINUE TO MONITOR UNTIL REPORT IS GIVEN TO ONCOMING RN.
--- NOTE | 2018-11-02 21:37 | NUR ---
ASSUMED CARE OF PATIENT AT APPROXIMATELY 1915 FROM REGINO Renee RN. PATIENT ALERT AND ORIENTED TO SELF, FAMILY AND SURROUNDINGS. PATIENT DENIES PAIN, NUMBNESS, TINGLING AND DIZZINESS. PATIENT HAS BEEN INDEPENDENT TO BATHROOM TODAY; S/P ANGIO WITH ONE STENT; RIGHT RADIAL ACCESS; TR BAND REMOVED SHORTLY AFTER SHIFT CHANGE; TEGADERM PLACED; NO S/S OF BLEEDING, HEMATOMA OR BRUISING NOTED. PIV S/L. NSR ON TELE; OXYGEN SATURATION ABOVE 90% ON ROOM AIR. PATIENT CURRENTLY RESTING IN BED; CALL LIGHT IN REACH; BED IN LOWEST POSISTION; BED ALARM ON; WILL CONTINUE TO MONITOR AND ASSESS UNTIL END OF SHIFT.
[2018-11-03 03:56] LABS: Albumin, Blood 2.8 g/dL (3.4-5.0); Anion Gap 7 mmol/L (6-16); Blood Urea Nitrogen 17 mg/dL (8-24); Bun/Creatinine Ratio 18.5 (12.0-20.0); CO2, Blood 28 mmol/L (21-32); Calcium, Blood 8.4 mg/dL (8.5-10.1); Chloride, Blood 107 mmol/L (98-108); Creatinine, Blood 0.92 mg/dL (0.60-1.20); Glomerular Filtration Rate >60 (60-); Glucose, Blood 108 mg/dL (70-99); Phosphorus, Blood 3.2 mg/dL (2.5-4.9); Sodium, Blood 142 mmol/L (136-145)
--- NOTE | 2018-11-03 06:01 | NUR ---
PATIENT SLEPT ABOUT NINE HOURS. NO CHANGES TO RIGHT RADIAL ACCESS SITE. VSS. NO OTHER ACUTE CHANGES TO REPORT. WILL CONTINUE TO MONITOR AND ASSESS UNTIL END OF SHIFT.
--- NOTE | 2018-11-03 08:02 | NUR ---
AM NOTE. ASSUMED CARE OF PT APROX 0700, PT IS A&O3, HAS DEVELOPMENTAL DELAY AND IS FORGETFUL AT TIMES. PT IS S/P ANGIO WITH STENT PLACMENT AND RIGHT RADIAL ACCESS. RADIAL SITE IS C/D/I, NO SWELLING, BLEEDING OR HEMATOMA NOTED. PT DENIES CHEST PAIN/PRESSURE, N/V OR SOB. PT'S VS STABLE. PT IS POSSIBLE D/C HOME TODAY. CALL LIGHT IN REACH, WILL CONTINUE TO MONITOR.
[2018-11-03 10:18] LABS: Hematocrit 31.2 % (37.0-53.0); Hemoglobin 9.4 g/dL (13.5-17.5); Mean Corpuscular HGB 25.3 pg (26.0-34.0); Mean Corpuscular HGB Conc 30.1 g/dL (31.5-36.5); Mean Corpuscular Volume 84 fL (80-100); Mean Platelet Volume 10.9 fL (9.1-12.4); Platelet Count 250 K/mm3 (150-400); RDW Coefficient Variation 15.7 % (11.7-14.2); RDW Standard Deviation 46.6 fL (35.1-46.3); Red Blood Cell Count 3.72 M/mm3 (4.30-5.90); White Blood Cell Count 8.42 K/mm3 (4.00-11.30)
[2018-11-03] MEDS ORDERED: CLOP75 PO (11:49)
[2018-11-03] MEDS ORDERED: ATOR80 PO (11:50)
[2018-11-03] MEDS ORDERED: Aspir 8181 MG PO (11:51)
[2018-11-03 11:55] LABS: Hematocrit 32.9 % (37.0-53.0)
[2018-11-03] MEDS ORDERED: Preparation H C26 GM PR (12:06)
[2018-11-03] MEDS ORDERED: METO25 PO (12:07)
[2018-11-03] MEDS ORDERED: NITR.4SL SL (12:09)
[2018-11-03] MEDS ORDERED: PANT20 PO (12:10)
[2018-11-03] MEDS ORDERED: METF500 PO (12:11)
== END 2018-11-03 13:15 | disposition home or self-care (01) | DRG 247 ==
LOC: ER 13:53 → PCU 17:12
PROVIDERS: Emergency Medicine; Internal Medicine Cardiovascular Disease; Internal Medicine Interventional Cardiology; Student in an Organized Health Care Education/Training Program; ADMIT Internal Medicine
PROC: 0DJD8ZZ Inspection of Lower Intestinal Tract, Via Natural or Artificial Opening Endoscopic (ICD-10-PCS; 2018-11-01)
PROC: 0DJ08ZZ Inspection of Upper Intestinal Tract, Via Natural or Artificial Opening Endoscopic (ICD-10-PCS; principal; 2018-11-01 10:00)
PROC: 027034Z Dilation of Coronary Artery, One Artery with Drug-eluting Intraluminal Device, Percutaneous Approach (ICD-10-PCS; 2018-11-02)
PROC: B2111ZZ Fluoroscopy of Multiple Coronary Arteries using Low Osmolar Contrast (ICD-10-PCS; 2018-11-02)
DX: I21.4 Non-ST elevation (NSTEMI) myocardial infarction (principal); Z68.42 Body mass index [BMI] 45.0-49.9, adult; E78.00 Pure hypercholesterolemia, unspecified; E11.9 Type 2 diabetes mellitus without complications; Z79.84 Long term (current) use of oral hypoglycemic drugs; E66.01 Morbid (severe) obesity due to excess calories; K76.0 Fatty (change of) liver, not elsewhere classified; I10 Essential (primary) hypertension; K21.9 Gastro-esophageal reflux disease without esophagitis; R62.50 Unspecified lack of expected normal physiological development in childhood; R78.5 Finding of other psychotropic drug in blood; G47.33 Obstructive sleep apnea (adult) (pediatric); K57.30 Diverticulosis of large intestine without perforation or abscess without bleeding; K31.7 Polyp of stomach and duodenum; K64.4 Residual hemorrhoidal skin tags; Z79.02 Long term (current) use of antithrombotics/antiplatelets; Z79.82 Long term (current) use of aspirin
CPT/HCPCS: 36415; 71046; 76937; 80053; 80061; 80069; 82272; 82550; 82553; 82947; 83036; 83735; 84100; 84484; 85014; 85018; 85025; 85027; 85347; 85610; 85730; 93005; 93010; 93306; 93456; 93458; 96374; 96375; 99152; 99153; 99285-25; C1725; C1769; C1874; C1887; C1894; C9113; C9600; J1644; J2250; J2270; J2405; J2704; J3010; J7030; J7120; Q9967

== ENCOUNTER → 2018-10-29 | Outpatient (CLI) | payer OTHER ==
[~2018-10-29] MED LIST changes: +ATOR80 PO; +Aspir 8181 MG PO; +CLOP75 PO; +LISI5 PO; +METO25 PO; +NITR.4SL SL; +PANT20 PO; +PIOG45 PO; +PIOGLITAZONE HC30 MG PO; +Preparation H C26 GM PR; +ZESTORETIC 20-251 EA
[2018-10-29 13:14] LABS: BASOPHILS ABSOLUTE AUTO 0.03 K/mm3 (0.00-0.23); BASOPHILS PERCENT AUTO 0 % (0-2); EOSINOPHILS ABSOLUTE AUTO 0.16 K/mm3 (0.00-0.68); EOSINOPHILS PERCENT AUTO 2 % (0-6); Hemoglobin 11.6 g/dL (13.5-17.5); IMMATURE GRAN ABSOLUTE AUTO 0.04 K/mm3 (0.00-0.10); IMMATURE GRAN PERCENT AUTO 0 % (0-1); LYMPHOCYTES ABSOLUTE AUTO 1.68 K/mm3 (0.84-5.20); LYMPHOCYTES PERCENT AUTO 17 % (21-46); MONOCYTES ABSOLUTE AUTO 0.58 K/mm3 (0.16-1.47); MONOCYTES PERCENT AUTO 6 % (4-13); Mean Corpuscular HGB 25.3 pg (26.0-34.0); Mean Corpuscular HGB Conc 31.4 g/dL (31.5-36.5); Mean Corpuscular Volume 81 fL (80-100); Mean Platelet Volume 10.3 fL (9.1-12.4); NEUTROPHILS ABSOLUTE AUTO 7.41 K/mm3 (1.96-9.15); NEUTROPHILS PERCENT AUTO 75 % (41-73); Platelet Count 349 K/mm3 (150-400); RDW Coefficient Variation 15.2 % (11.7-14.2); RDW Standard Deviation 44.1 fL (35.1-46.3); Red Blood Cell Count 4.59 M/mm3 (4.30-5.90)
[2018-10-29 13:31] LABS: Alanine Aminotransfer (ALT/SGP 18 U/L (12-78); Albumin, Blood 3.3 g/dL (3.4-5.0); Albumin/Globulin Ratio 0.7 (0.8-1.8); Alk Phos 83 U/L (40-126); Anion Gap 8 mmol/L (6-16); Aspartate Aminotrans (AST/SGOT 16 U/L (12-37); Bilirubin, Total 0.4 mg/dL (0.1-1.0); Blood Urea Nitrogen 18 mg/dL (8-24); Bun/Creatinine Ratio 15.5 (12.0-20.0); CO2, Blood 27 mmol/L (21-32); Chloride, Blood 105 mmol/L (98-108); Creatinine, Blood 1.16 mg/dL (0.60-1.20); Globulin, Blood 4.6 g/dL (2.2-4.0); Glomerular Filtration Rate >60 (60-); Glucose, Blood 131 mg/dL (70-99); Potassium, Blood 4.4 mmol/L (3.5-5.5); Sodium, Blood 140 mmol/L (136-145); Total Protein, Blood 7.9 g/dL (6.4-8.2); Troponin I 0.364 ng/mL (0.000-0.040)
== END | disposition home or self-care (01) ==
LOC: LAB EV 13:08 → LAB SHORT 13:08
PROVIDERS: Physician Assistant
DX: R07.9 Chest pain, unspecified (principal); R06.09 Other forms of dyspnea
CPT/HCPCS: 80053; 83690; 83880; 84484; 85025

== ENCOUNTER → 2019-08-11 | Outpatient (CLI) | payer OTHER ==
[~2019-08-11] MED LIST changes: +ATOR80 PO; +Aspir 8181 MG PO; +CLOP75 PO; +LISI5 PO; +METO25 PO; +NITR.4SL SL; +PANT20 PO; +PIOGLITAZONE HC30 MG PO; +Preparation H C26 GM PR; +ZESTORETIC 20-251 EA
== END | disposition home or self-care (01) ==
LOC: LAB SRC 09:27 → LAB SHORT 09:27 → LAB FUT 02-18 14:00
DX: E11.42 Type 2 diabetes mellitus with diabetic polyneuropathy (principal); E11.65 Type 2 diabetes mellitus with hyperglycemia; I10 Essential (primary) hypertension; E78.2 Mixed hyperlipidemia; I25.10 Atherosclerotic heart disease of native coronary artery without angina pectoris
CPT/HCPCS: 82043

== ENCOUNTER 2020-09-15 09:51 | Emergency (ER) | payer OTHER ==
[~2020-09-15] VITALS: Ht 177.8 cm; Wt 145.2 kg
[2020-09-15 10:34] LABS: Source, Urine Voided
[2020-09-15 10:51] LABS: Appearance, Urine Clear (Clear); Blood, Urine 2+ (Neg); Color, Urine Yellow (P-Yellow); Glucose Qualitative, Urine Neg (Neg); Ketones, Urine 1+ (Neg); Leukocyte Esterase, Urine 1+ (Neg); Nitrite, Urine Neg (Neg); Protein, Urine 2+ (Neg); Urobilinogen, Urine 3+ (Normal)
[2020-09-15 10:53] LABS: Albumin, Blood 2.4 g/dL (3.4-5.0); Albumin/Globulin Ratio 0.5 (0.8-1.8); Bilirubin, Total 0.9 mg/dL (0.1-1.0); Creatinine, Blood 1.2 mg/dL (0.60-1.20); Globulin, Blood 5.1 g/dL (2.2-4.0); Total Protein, Blood 7.5 g/dL (6.4-8.2)
[2020-09-15 10:54] LABS: Troponin I 0.015 ng/mL (0.000-0.040)
[2020-09-15 10:57] LABS: Hematocrit 34.8 % (37.0-53.0); Hemoglobin 10.5 g/dL (13.5-17.5); Mean Corpuscular HGB 25.4 pg (26.0-34.0); Mean Corpuscular HGB Conc 30.2 g/dL (31.5-36.5); Mean Corpuscular Volume 84 fL (80-100); Mean Platelet Volume 11.6 fL (9.1-12.4); NRBC ABSOLUTE 0.02 K/mm3 (0.00-0.02); NRBC Auto 0.3 /100 WBC (0.0-0.2); Platelet Count 300 K/mm3 (150-400); RDW Coefficient Variation 17.6 % (11.7-14.2); RDW Standard Deviation 54.3 fL (35.1-46.3); Red Blood Cell Count 4.13 M/mm3 (4.30-5.90); White Blood Cell Count 6.05 K/mm3 (4.00-11.30)
[2020-09-15 11:11] LABS: Bilirubin, Urine 1+ (Neg)
[2020-09-15 11:13] LABS: Bacteria Mod /hpf; Granular Casts 0-2 /lpf (0); Red Blood Cells, Urine 0-2 /hpf (0-2); Squamous Epithelial Cells Few /hpf (Few)
[2020-09-15 11:37] LABS: Base Excess Venous 0.2 mmol/L; Bicarbonate Venous 24.4 mmol/L (24.0-30.0); PCO2 Venous 38.8 mmHg (38-42); PO2 Venous 48.9 mmHg (38-42); pH Blood Venous 7.41 (7.34-7.37)
[2020-09-15 11:56] LABS: BAND PERCENT MAN 8 % (0-8); BASOPHILS PERCENT MAN 0 % (0-2); EOSINOPHILS PERCENT MAN 0 % (0-6); LYMPHOCYTES ABSOLUTE MAN 0.84 K/mm3 (0.84-5.20); LYMPHOCYTES PERCENT MAN 14 % (21-46); MONOCYTES ABSOLUTE MAN 0.72 K/mm3 (0.16-1.47); MONOCYTES PERCENT MAN 12 % (4-13); NEUTROPHILS ABSOLUTE MAN 4.47 K/mm3 (1.96-9.15); SEG NEUTROPHILS PERCENT MAN 66 % (41-73); TOTAL CELLS COUNTED 100
== END 2020-09-15 16:12 | disposition home or self-care (01) ==
LOC: ER 09:51
PROVIDERS: Emergency Medicine
DX: U07.1 COVID-19 (principal); J12.82 Pneumonia due to coronavirus disease 2019; R09.02 Hypoxemia; E11.9 Type 2 diabetes mellitus without complications; E78.00 Pure hypercholesterolemia, unspecified; Z79.82 Long term (current) use of aspirin; Z79.899 Other long term (current) drug therapy; Z79.84 Long term (current) use of oral hypoglycemic drugs
CPT/HCPCS: 71045; 71260; 73502; 80053; 81001; 82803; 83880; 84484; 85025; 93005; 93010; 99284-25; Q9967

== ENCOUNTER 2020-09-17 11:59 | Inpatient (IN) | payer OTHER, MEDICARE ==
[~2020-09-17] VITALS: Ht 177.8 cm; Wt 127.4 kg
[2020-09-17 12:23] LABS: Hematocrit 33.1 % (37.0-53.0); Hemoglobin 10.2 g/dL (13.5-17.5); Mean Corpuscular HGB 25.4 pg (26.0-34.0); Mean Corpuscular HGB Conc 30.8 g/dL (31.5-36.5); Mean Corpuscular Volume 82 fL (80-100); Mean Platelet Volume 11.4 fL (9.1-12.4); NRBC ABSOLUTE 0.07 K/mm3 (0.00-0.02); NRBC Auto 0.6 /100 WBC (0.0-0.2); Platelet Count 342 K/mm3 (150-400); RDW Coefficient Variation 17.9 % (11.7-14.2); RDW Standard Deviation 53.5 fL (35.1-46.3); Red Blood Cell Count 4.02 M/mm3 (4.30-5.90); White Blood Cell Count 11.79 K/mm3 (4.00-11.30)
[2020-09-17 12:38] LABS: International Normalized Ratio 1.16; Prothrombin Time Results 12.4 Sec (9.7-11.5)
[2020-09-17 12:41] LABS: Albumin, Blood 2.1 g/dL (3.4-5.0); Albumin/Globulin Ratio 0.4 (0.8-1.8); Bun/Creatinine Ratio 20.6 (12.0-20.0); Calcium, Blood 8.1 mg/dL (8.5-10.1); Creatinine, Blood 1.36 mg/dL (0.60-1.20); Potassium, Blood 4.2 mmol/L (3.5-5.5); Total Protein, Blood 7.1 g/dL (6.4-8.2); Troponin I 0.041 ng/mL (0.000-0.040)
[2020-09-17 12:54] LABS: BAND PERCENT MAN 4 % (0-8); BASOPHILS ABSOLUTE MAN 0.11 K/mm3 (0.00-0.23); BASOPHILS PERCENT MAN 1 % (0-2); EOSINOPHILS ABSOLUTE MAN 0.11 K/mm3 (0.00-0.68); EOSINOPHILS PERCENT MAN 1 % (0-6); LYMPHOCYTES ABSOLUTE MAN 0.35 K/mm3 (0.84-5.20); LYMPHOCYTES PERCENT MAN 3 % (21-46); METAMYELOCYTE ABSOLUTE MAN 0.11 K/mm3 (0.00-0.00); METAMYELOCYTE PERCENT MAN 1 % (0-0); MONOCYTES ABSOLUTE MAN 0.58 K/mm3 (0.16-1.47); MONOCYTES PERCENT MAN 5 % (4-13); MYELOCYTE ABSOLUTE MAN 0.11 K/mm3 (0.00-0.00); MYELOCYTE PERCENT MAN 1 % (0-0); NEUTROPHILS ABSOLUTE MAN 10.37 K/mm3 (1.96-9.15); SEG NEUTROPHILS PERCENT MAN 84 % (41-73); TOTAL CELLS COUNTED 100
[2020-09-17 13:08] LABS: Base Excess Venous -3.4 mmol/L; Bicarbonate Venous 22.1 mmol/L (24.0-30.0); PCO2 Venous 32.5 mmHg (38-42); PO2 Venous 130 mmHg (38-42); pH Blood Venous 7.42 (7.34-7.37)
[2020-09-17 13:14] LABS: SARS-Cov-2 (COVID-19) PCR, MMC POSITIVE (NEGATIVE)
[2020-09-17 14:55] LABS: Source, Urine Catheter
[2020-09-17 14:59] LABS: Appearance, Urine Hazy (Clear); Blood, Urine 3+ (Neg); Color, Urine Amber (P-Yellow); Glucose Qualitative, Urine Neg (Neg); Ketones, Urine 1+ (Neg); Leukocyte Esterase, Urine 1+ (Neg); Nitrite, Urine Pos (Neg); Protein, Urine 3+ (Neg); Specific Gravity, Urine 1.025 (1.003-1.022); Urobilinogen, Urine 3+ (Normal)
[2020-09-17 15:01] LABS: Bilirubin, Urine 1+ (Neg)
[2020-09-17 15:07] LABS: Amorphous Light (0-Heavy); Bacteria Many /hpf; Squamous Epithelial Cells Few /hpf (Few)
[2020-09-17 15:08] LABS: Mucus Light (0-Heavy)
[2020-09-17] MEDS ORDERED: LISI20 PO (15:55)
[2020-09-17] MEDS ORDERED: LEVOTHYROXINE112 MC6 PO (15:55)
[2020-09-17] MEDS ORDERED: PLAVIX75 MG PO (15:56)
--- NOTE | 2020-09-17 18:59 | NUR ---
Admission/[facility] of [facility]: Patient arrived to unit at 1730hr, via gurney, accompanied by ED nurse. Patient arrived on oxymizer NC at 12LPM, respirations in the 30's, and appeared SOB. Patient then boosted in bed, sat upright and oxymizer increased to 15L. Patient's SpO2 remained in mid 80's. Call placed to Karyn THOMAS, who then placed patient on Airvo NC at 50L/85%. Airvo effective to increase SpO2 to 93%. Patient's respirations slowed to 28-30, and appeared/stated to be comfortable. Harrington cath patent and intact, draining dark yellow urine. FS IV to lt AC not patent upon arrival. New peripheral placed to lt FA, also peripheral in place to rt FA, both patent and intact. NS bolus finished and patient placed on maintenance NS at 125ml/hr. Patient alert and oriented to self, and place. Denies pain or discomfort, calm and cooperative with staff. Call light in reach. Report given to NOC shift RN.
--- NOTE | 2020-09-17 22:49 | NUR ---
09/17 @ 19:00 SONAL RN RECEIVED CALL FROM PT. SISTER, CATARINO, PER CATARINO SHE WILL BE IN TOMORROW DURING VISITING HOURS TO GO OVER ADMISSION DATA, TOO BUSY TO DO SO TONIGHT WITH NIGHT NURSE. @ 20:[address] PERDUE PT. TOOK ABOUT 20 MINUTES TO RECOVER RESPIRATORY FROM TURNING AND REPOSITIONING. HEART RATE UP ~ 115, RESPIRATORY RATE IN HIGH 40s, PT PANICKY, ANXIOUS, SPO2 DOWN TO LOW OF 84%. CALLED SUZY, RT, PT HAD RECOVERED SPO2 BY TIME R.T. ARRIVED TO UNIT, STILL OCASSIONALLY DESATURATING TO 87% - 92%. SOON FINISHED REPOSITIONING INCREASED FIO2 TO 93% ON AIRVO, INFORMED RT. PER DR PERDUE NO NEW ORDERS AT THIS TIME PT EVENTUALLY RECOVERED AND NOT EXHIBITING ANY WORSENING NEUROLOGICAL SYMPTOMS AT THIS TIME. LATER @ 21:45 CALLED RT PT HAD INCREASED WORK OF BREATHING, DESATURATING TO 87% SHORTLY AFTER HE HAD TURNED HIMSELF IN BED, AND AGAIN BY TIME RT ARRIVED TO UNIT PT HAD RECEOVERED. WILL CONTINUE TO MONITOR.
[2020-09-18 03:23] LABS: Hematocrit 29.5 % (37.0-53.0); Hemoglobin 8.9 g/dL (13.5-17.5); Mean Corpuscular HGB 25.5 pg (26.0-34.0); Mean Corpuscular HGB Conc 30.2 g/dL (31.5-36.5); Mean Corpuscular Volume 85 fL (80-100); Mean Platelet Volume 11.5 fL (9.1-12.4); NRBC ABSOLUTE 0.04 K/mm3 (0.00-0.02); NRBC Auto 0.5 /100 WBC (0.0-0.2); Platelet Count 240 K/mm3 (150-400); RDW Coefficient Variation 18.2 % (11.7-14.2); Red Blood Cell Count 3.49 M/mm3 (4.30-5.90); White Blood Cell Count 7.83 K/mm3 (4.00-11.30)
[2020-09-18 03:42] LABS: Albumin, Blood 1.8 g/dL (3.4-5.0); Albumin/Globulin Ratio 0.4 (0.8-1.8); Bilirubin, Total 0.8 mg/dL (0.1-1.0); Bun/Creatinine Ratio 19.7 (12.0-20.0); Calcium, Blood 7.4 mg/dL (8.5-10.1); Creatinine, Blood 1.27 mg/dL (0.60-1.20); Globulin, Blood 4.4 g/dL (2.2-4.0); Potassium, Blood 4.3 mmol/L (3.5-5.5); Total Protein, Blood 6.2 g/dL (6.4-8.2)
[2020-09-18 04:29] LABS: BAND PERCENT MAN 6 % (0-8); BASOPHILS PERCENT MAN 0 % (0-2); EOSINOPHILS ABSOLUTE MAN 0.15 K/mm3 (0.00-0.68); EOSINOPHILS PERCENT MAN 2 % (0-6); LYMPHOCYTES ABSOLUTE MAN 0.54 K/mm3 (0.84-5.20); LYMPHOCYTES PERCENT MAN 7 % (21-46); METAMYELOCYTE ABSOLUTE MAN 0.07 K/mm3 (0.00-0.00); METAMYELOCYTE PERCENT MAN 1 % (0-0); MONOCYTES ABSOLUTE MAN 0.46 K/mm3 (0.16-1.47); MONOCYTES PERCENT MAN 6 % (4-13); NEUTROPHILS ABSOLUTE MAN 6.57 K/mm3 (1.96-9.15); SEG NEUTROPHILS PERCENT MAN 78 % (41-73); TOTAL CELLS COUNTED 100
--- NOTE | 2020-09-18 04:50 | NUR ---
09/18 @ 03:00 RETRIEVED ORDER FOR BIPAP PT SPO2 SAT 82-84% FOR ABOUT 30 MINUTES. INFORMED RT. RT ARRIVED TO ICU ~ 03:45, PT HAD EVENTUALLY RECOVERED SPO2 HOWEVER STILL HAVING INCREASE WORK OF BREATHING. PER RT, WILL NOT PLACE BIPAP, INSTEAD PLACE NON-REBREATHER OVER AIRVO DURING REPOSITIONING ACTIVITIES. WILL CONTINUE TO MONITOR.
--- NOTE | 2020-09-18 09:08 | NUR ---
PT RESTING ON CPAP. PT IS A/O TO PERSON AND PLACE. GETS SOB WITH TALKING. RT ATTEMPTED TO PUT PT ON BIPAP BUT PT DIDN'T TOLERATE THE PRESSURE EVEN ONLY BEING ON 10/6. PLACED BACK ON CPAP AND PT IS MORE COMFORTABLE. RESP RATE 28-30 WHEN UNDISTURBED, CLIMBS TO 35-40 WHEN AWAKE AND MOVING AROUND. INCREASED FIO2 WHEN REPOSITIONING TO KEEP PT FROM DESATTING WITH ACTIVITY. ONCE PT SETTLED FIO2 WAS PUT BACK TO 70% AND PT NEVER DESATTED. TEMP PROBE TO ERAZO CONNECTED AND PT HAS FEVER OF 101.8. TOOK HEAVY BLANKETS OFF AND LOWERED TEMP IN THE ROOM. KEEPING PT NPO FOR NOW DUE TO CPAP DEPENDENCE. NO SIGN OF DISTRESS NOW.
--- NOTE | 2020-09-18 18:30 | NUR ---
SUMMARY PT RESTING IN BED. WAS ON CPAP MOST OF THE DAY. THIS EVENING ABLE TO TAKE A BREAK FROM CPAP ON AIRVO 50L FIO2 75%. PT IS SPEAKING IN LONGER SENTENCES NOW. STATES HE IS FEELING BETTER. ASSISTING WITH TURNS IN BED. HAS NOT DESATTED TODAY. NO SIGN OF DISTRESS.
[2020-09-19 03:39] LABS: Hematocrit 28.2 % (37.0-53.0); Hemoglobin 8.5 g/dL (13.5-17.5); Mean Corpuscular HGB 25.4 pg (26.0-34.0); Mean Corpuscular HGB Conc 30.1 g/dL (31.5-36.5); Mean Corpuscular Volume 84 fL (80-100); Mean Platelet Volume 11.7 fL (9.1-12.4); Platelet Count 229 K/mm3 (150-400); RDW Coefficient Variation 18.2 % (11.7-14.2); RDW Standard Deviation 55.8 fL (35.1-46.3); Red Blood Cell Count 3.35 M/mm3 (4.30-5.90); White Blood Cell Count 5.96 K/mm3 (4.00-11.30)
[2020-09-19 03:43] LABS: Base Excess Venous -4.7 mmol/L; PCO2 Venous 30.3 mmHg (38-42); PO2 Venous 146 mmHg (38-42); pH Blood Venous 7.42 (7.34-7.37)
[2020-09-19 03:58] LABS: Alanine Aminotransfer (ALT/SGP 33 U/L (12-78); Albumin, Blood 1.6 g/dL (3.4-5.0); Albumin/Globulin Ratio 0.4 (0.8-1.8); Alk Phos 55 U/L (50-136); Anion Gap 7 mmol/L (6-16); Aspartate Aminotrans (AST/SGOT 43 U/L (12-37); Bilirubin, Total 0.5 mg/dL (0.1-1.0); Blood Urea Nitrogen 25 mg/dL (8-24); Bun/Creatinine Ratio 24.5 (12.0-20.0); CO2, Blood 21 mmol/L (21-32); Calcium, Blood 7.2 mg/dL (8.5-10.1); Chloride, Blood 116 mmol/L (98-108); Creatinine, Blood 1.02 mg/dL (0.60-1.20); Globulin, Blood 4.2 g/dL (2.2-4.0); Glomerular Filtration Rate >60 (60-); Glucose, Blood 187 mg/dL (70-99); Potassium, Blood 4.5 mmol/L (3.5-5.5); Sodium, Blood 144 mmol/L (136-145); Total Protein, Blood 5.8 g/dL (6.4-8.2)
[2020-09-19 04:06] LABS: BAND PERCENT MAN 7 % (0-8); BASOPHILS PERCENT MAN 0 % (0-2); EOSINOPHILS PERCENT MAN 0 % (0-6); LYMPHOCYTES ABSOLUTE MAN 0.23 K/mm3 (0.84-5.20); LYMPHOCYTES PERCENT MAN 4 % (21-46); METAMYELOCYTE ABSOLUTE MAN 0.11 K/mm3 (0.00-0.00); METAMYELOCYTE PERCENT MAN 2 % (0-0); MONOCYTES ABSOLUTE MAN 0.29 K/mm3 (0.16-1.47); MONOCYTES PERCENT MAN 5 % (4-13); SEG NEUTROPHILS PERCENT MAN 82 % (41-73); TOTAL CELLS COUNTED 150
--- NOTE | 2020-09-19 05:20 | NUR ---
SHIFT SUMMARY PATIENT HAS SLEPT WELL THROUGH NIGHT. SLEPT WITH CPAP IN PLACE, 75% FIO2 ALL NIGHT, MAINTAINED SPO2 92-96. LUNG SOUNDS HAVE IMPROVED MARGINALLY NIGHT HAS PROGRESSED, MORE DIMINISHED ON RIGHT THAN LEFT. HAS HELPED DRASTICALLY TO KEEP PT. FROM SLIDING DOWN IN BED DESPITE HIS FREQUENT WRIGGLING DOWN IN BED. NO C/O PAIN. ASSESSMENT IS CHARTED. VSS. WILL CONTINUE TO MONITOR.
--- NOTE | 2020-09-19 08:45 | NUR ---
ASSUMED CARE / DR ESTEBAN: REPORT RECEIVED FROM VASQUEZ Maddox RN. ASSUMED CARE OF THIS PT AT APPROX 0700. ON ASSESSMENT, THE PT IS RESTING QUIETLY. HE AWAKENS EASILY TO VERBAL STIMULUS. HX DEVELOPMENTAL DELAYS & PT IS FORGETFUL AT TIMES. FINE CRACKLES LLL, PT ON CPAP 10 & 85% FIO2 W/ O2 SATS > 90%. TOMAS Taylor RT, AT BEDSIDE & HAS TRIALED PT ON AIRVO W/ SETTINGS: 55 L/MIN & 85% FIO2. HE HAS TOLERATED THIS WELL UNTIL HAVING A COUGHING EPISODE AT WHICH TIME DESATS TO 76% NOTED & PT PLACED BACK ON CPAP W/ O2 SATS IMPROVED. MONITOR SHOWS SR-ST W/ HR 90-100s, BP STABLE. PT HAS NO GI COMPLAINTS, NPO PENDING SPEECH EVAL & TX. TEMP ERAZO PATENT/ DRAINING. SKIN CONDITION OVERALL CDI, Q2H REPOSITIONING TO MAINTAIN SKIN INTEGRITY. PROVIDER AT BEDSIDE TO EVAL PT, NO CHANGES AT THIS TIME. WILL CONTINUE TO MONITOR & UPDATE NEEDED.
--- NOTE | 2020-09-19 18:21 | NUR ---
SHIFT SUMMARY: NO ACUTE CHANGES SINCE PRIOR UPDATES. PT REMAINS A&O, PLEASANT & COOPERATIVE W/ CARE. LS DIM T/O, FINE CRACKLES TO LLL. PT HAS SPENT MOST OF THE SHIFT ON CPAP 10 & 85% FIO2, HE HAS TOLERATED SMALL BREAKS ON AIRVO W/ SETTINGS: 55 L/MIN & 85% FIO2 BUT QUICKLY DESATS DURING COUGHING EPISODES & DOES NOT RECOVER W/O CPAP USE. MONITOR SHOWS SR W/ HR 70s, BP STABLE. NPO & SPEECH THERAPY UNABLE TO EVAL PT THIS SHIFT R/T RESPIRATORY STATUS. INCONTINENT BM x1 THIS AFTERNOON. TEMP ERAZO PATENT/ DRAINING DARK YELLOW URINE - SEE I&O. SKIN CONDITION OVERAL INTACT, Q2H REPOSITIONING TO MAINTAIN SKIN INTEGRITY. WILL CONTINUE TO MONITOR & REPORT OFF TO ONCOMING RN.
--- NOTE | 2020-09-19 19:43 | NUR ---
09/19 @ 19:[address] ZHANG REGARDING PATIENT, OBTAINED ORDER FOR CONSULT AFTER RECEIVING CALL WITH DR ESTEBAN. RAISED CONCERN OVER INCREASING FIO2 NEEDS, RESPIRATORY EFFORT AND RATE, UNABLE TO TOLERATE BREAKS FROM CPAP THRU DAYTIME. CURRENTLY HR = 80, RN=237/68 MAP=92, TEMP=98.2, R.R.=35, SPO2=94%. RELAYED THESE TO DR ZHANG, WHO SAID TO TRIAL BIPAP AGAIN TONIGHT, SEE IF PT TOLERATES THIS, AND KEEP INFORMED WITH ANY FURTHER CHANGES. INFORMED RESPIRATORY THERAPY TO TRIAL BIPAP, PT. ALREADY ON CPAP WITH V60. WILL CONTINUE TO MONITOR.
[2020-09-19 20:12] LABS: Alanine Aminotransfer (ALT/SGP 37 U/L (12-78); Albumin, Blood 1.7 g/dL (3.4-5.0); Albumin/Globulin Ratio 0.4 (0.8-1.8); Alk Phos 55 U/L (50-136); Anion Gap 6 mmol/L (6-16); Aspartate Aminotrans (AST/SGOT 64 U/L (12-37); Bilirubin, Total 0.4 mg/dL (0.1-1.0); Blood Urea Nitrogen 27 mg/dL (8-24); Bun/Creatinine Ratio 31.8 (12.0-20.0); CO2, Blood 22 mmol/L (21-32); Calcium, Blood 7.7 mg/dL (8.5-10.1); Chloride, Blood 117 mmol/L (98-108); Creatinine, Blood 0.85 mg/dL (0.60-1.20); Globulin, Blood 4.4 g/dL (2.2-4.0); Glomerular Filtration Rate >60 (60-); Glucose, Blood 217 mg/dL (70-99); Potassium, Blood 4.4 mmol/L (3.5-5.5); Sodium, Blood 145 mmol/L (136-145); Total Protein, Blood 6.1 g/dL (6.4-8.2)
[2020-09-20 04:18] LABS: BASOPHILS ABSOLUTE AUTO 0.02 K/mm3 (0.00-0.23); BASOPHILS PERCENT AUTO 0 % (0-2); EOSINOPHILS ABSOLUTE AUTO 0.01 K/mm3 (0.00-0.68); EOSINOPHILS PERCENT AUTO 0 % (0-6); Hematocrit 29.3 % (37.0-53.0); Hemoglobin 8.9 g/dL (13.5-17.5); Mean Corpuscular HGB 25.4 pg (26.0-34.0); Mean Corpuscular HGB Conc 30.4 g/dL (31.5-36.5); Mean Corpuscular Volume 84 fL (80-100); Mean Platelet Volume 11.3 fL (9.1-12.4); NRBC ABSOLUTE 0.03 K/mm3 (0.00-0.02); NRBC Auto 0.4 /100 WBC (0.0-0.2); Platelet Count 250 K/mm3 (150-400); RDW Coefficient Variation 18.5 % (11.7-14.2); RDW Standard Deviation 55.8 fL (35.1-46.3); Red Blood Cell Count 3.51 M/mm3 (4.30-5.90); White Blood Cell Count 8.37 K/mm3 (4.00-11.30)
[2020-09-20 04:19] LABS: IMMATURE GRAN ABSOLUTE AUTO 0.33 K/mm3 (0.00-0.10); IMMATURE GRAN PERCENT AUTO 4 % (0-1); LYMPHOCYTES ABSOLUTE AUTO 0.76 K/mm3 (0.84-5.20); LYMPHOCYTES PERCENT AUTO 9 % (21-46); MONOCYTES PERCENT AUTO 4 % (4-13); NEUTROPHILS ABSOLUTE AUTO 6.95 K/mm3 (1.96-9.15); NEUTROPHILS PERCENT AUTO 83 % (41-73)
[2020-09-20 04:40] LABS: Alanine Aminotransfer (ALT/SGP 35 U/L (12-78); Albumin, Blood 1.7 g/dL (3.4-5.0); Albumin/Globulin Ratio 0.4 (0.8-1.8); Alk Phos 53 U/L (50-136); Anion Gap 5 mmol/L (6-16); Aspartate Aminotrans (AST/SGOT 55 U/L (12-37); Bilirubin, Total 0.4 mg/dL (0.1-1.0); Blood Urea Nitrogen 27 mg/dL (8-24); Bun/Creatinine Ratio 33.3 (12.0-20.0); CO2, Blood 22 mmol/L (21-32); Calcium, Blood 7.6 mg/dL (8.5-10.1); Chloride, Blood 118 mmol/L (98-108); Creatinine, Blood 0.81 mg/dL (0.60-1.20); Globulin, Blood 4.4 g/dL (2.2-4.0); Glomerular Filtration Rate >60 (60-); Glucose, Blood 162 mg/dL (70-99); Potassium, Blood 4.3 mmol/L (3.5-5.5); Sodium, Blood 145 mmol/L (136-145); Total Protein, Blood 6.1 g/dL (6.4-8.2)
--- NOTE | 2020-09-20 05:59 | NUR ---
SHIFT SUMMARY PATIENT HAS SLEPT OFF AND ON THROUGH NIGHT. AROUND 03:25 PT REQUESTED BREAK FROM CPAP. SWITCHED OVER TO AIVO, PT DESATURATED QUICKLY TO 84% ON 85% FIO2 PT HAD ON CPAP, TURNED UP TO 100%, PT STILL CANNOT MAINTAIN SPO2 ANY HIGHER THAN 85%, PREDOMINATELY MOUTH-BREATHING. WHEN ISNTRUCTED TO BREATHE THRU NOSE PT HAD A CONFUSED LOOK ON FACE, AND ALL BUT STOPPED BREATHING, SWITCHED BACK TO CPAP. HR ELEVATED TO HI 90s LO 100s, RR 40S, INCREASED WORK OF BREATHING. MAINTAINED CPAP FIO2 @ 100% FROM 03:30 TIL 05:50, TURNED BACK DOWN TO 85%, MAINTAINING SPO2 ~ 91% SO FAR. ASSESSMENT IS CHARTED. VSS. WILL CONTINUE TO MONITOR.
--- NOTE | 2020-09-20 08:30 | NUR ---
ASSUMED CARE / DR DAVIS / DR ESTEBAN: REPORT RECEIVED FROM VASQUEZ Maddox RN. ASSUMED CARE OF THIS PT AT APPROX 0700. ON ASSESSMENT, THE PT IS AWAKE, ORIENTED TO SELF & FOLLOWING DIRECTIONS. HX DEVELOPMENTAL DELAYS, HE IS SLOW TO RESPOND AT TIMES & FORGETFUL AT BASELINE. CRACKLES NOTED IN LLL, PT ON CPAP 10 & 95% FIO2 AT THIS TIME. O2 SATS > 92% O AVG, DESATS TO 87% W/ COUGHING EPISODES. COUGH IS DRY, UNABLE TO COLLECT SPUTUM SPECIMEN. MONTIOR SHOWS SR W/ HR 80-90s, OCCASIONAL PVCs, BP STABLE. ABD IS DISTENDED SLIGHTLY, PT STS NORMAL. HE IS NPO PENDING SPEECH EVAL BUT HAS BEEN UNABLE TO TOLERATE BREAKS FROM CPAP FOR EVAL TO OCCUR. TEMP ERAZO PATENT/ DRAINING DARK YELLOW URINE. SKIN CONDITION OVERALL INTACT, Q2H REPOSITIONING TO MAINTAIN SKIN INTEGRITY. PROVIDERS SUSAN & EULALIA AT BEDSIDE THIS AM. DR DAVIS PLANS TO PLACE ORDERS FOR IV NUTRITION R/T PT's PROLONGED NPO STATUS. DR ESTEBAN WOULD LIKE THIS RN TO OBTAIN A RESPIRATORY PCR PANEL & TO CONTINUE ATTEMPTING TO OBTAIN SPUTUM SPECIMEN IF POSSIBLE. WILL CONTINUE TO MONITOR & UPDATE NEEDED.
--- NOTE | 2020-09-20 09:58 | NUR ---
DR ZHANG: PROVIDER AT BEDSIDE TO EVAL PT. HE HAS SWITCHED FROM CPAP TO BIPAP W/ SETTINGS: 14/10 & 90% FIO2. HE WOULD LIKE THIS RN TO AGAIN TRIAL THE PT ON AIRVO & SEE HOW HE TOLERATES. HE WILL BE CALLING THE PT's SISTER, CATARINO, TO DISCUSS POC IF THE PT's CONDITION DECLINES FURTHER & INTUBATION MAY BE NEEDED.
[2020-09-20 17:13] LABS: PCO2 Arterial 41.2 mmHg (35-45); pH Blood Arterial 7.33 (7.35-7.45)
--- NOTE | 2020-09-20 19:15 | NUR ---
INTUBATION / SHIFT SUMMARY: DR ZHANG HAS DISCUSSED THE PT's CURRENT CONDITION W/ THE PT's SISTER, CATARINO, WHO IS AT BEDSIDE THIS AFTERNOON. SHE IS THE PT's PRIMARY CAREGIVER & IS AGREEABLE THAT INTUBATION WOULD BE THE BEST OPTION AT THIS TIME. PROVIDER HAS NOTIFIED THIS RN & RT REI, THAT WE WILL BE PROCEEDING W/ INTUBATION SHARIF. THIS RN, JOSIANE Taylor (RT), KONG Gardner ([employer]) & DR ZHANG AT BEDSIDE AT APPROX 1540. TIME OUT COMPLETED & INTUBATION OCCURED FOLLOWS. 1550 - 5 ML PROPOFOL GIVEN IVP & PROPOFOL DRIP INITIATED AT 20 MCG/KG/MIN. 1552 - 100 MG SUCCINYLCHOLINE GIVEN IVP 1553 - 5 ML PROPOFOL GIVEN IVP 1554 - 100 MG SUCCINYLCHOLINE GIVEN IVP. PROVIDER UNABLE TO VISUALIZE VOCAL CORDS. RT REI, HAS BEGUN BAGGING PT TO RECOVER PT AFTER DESATS, O2 SATS IMPROVED W/ BAGGING - SEE VS. 1556 - 10 ML PROPOFOL GIVEN IVP & PROPOFOL DRIP INCREASED TO 35 MCG/KG/MIN 1557 - SUCCESSFUL INTUBATION W/ 8.0 ETT PLACED, 26.0 CM ATG. + COLOR CHANGE NOTED ON CO2 DETECTOR & BILAT BREATH SOUNDS AUSCULTATED. 1600 - 2 MG ATIVAN GIVEN IVP 1605 - PROPOFOL DRIP INCREASED TO 50 MCG/KG/MIN 1617 - 2 MG ATIVAN GIVEN IVP. OGT PLACED. 1624 - 100 MG SUCCINYLCHOLINE GIVEN IVP. X-RAY TECH AT BEDSIDE. 1700 - ABG COMPLETED. SEE LABS FOR RESULTS. SINCE INTUBATION, THE PT HAS RESTED QUIETLY W/ NIMBEX INFUSING AT 2 MCG/KG/MIN & PROPOFOL AT 50 MCG/KG/MIN. BIS READING 46-60 & TRAIN OF 4 IS 4/4. OGT TO LIS. DR ZHANG WOULD LIKE THE PT TO BE PRONED IF HE CONTINUES REQUIRING > 80% FIO2 TO MAINTAIN SATS. VENT SETTINGS CURRENTLY: PC 15/15/100%. REPORT GIVEN TO VASQUEZ Maddox RN TO ASSUME CARE.
[2020-09-20 23:17] LABS: Adenovirus Not Detected (NOT DETECT); Coronavirus 229E Not Detected (NOT DETECT); Coronavirus HKU1 Not Detected (NOT DETECT); Coronavirus NL63 Not Detected (NOT DETECT)
[2020-09-20 23:18] LABS: Bordetella pertussis Not Detected (NOT DETECT); Chlamydophila pneumoniae Not Detected (NOT DETECT); Coronavirus OC43 Not Detected (NOT DETECT); Human Metapneumovirus Not Detected (NOT DETECT); Human Rhinovirus/Enterovirus Not Detected (NOT DETECT); Influenza A/2009-H1 Not Detected (NOT DETECT); Influenza A/H1 Not Detected (NOT DETECT); Influenza A/H3 Not Detected (NOT DETECT); Influenza B Not Detected (NOT DETECT); Mycoplasma pneumoniae Not Detected (NOT DETECT); Parainfluenza Virus 1 Not Detected (NOT DETECT); Parainfluenza Virus 2 Not Detected (NOT DETECT); Parainfluenza Virus 3 Not Detected (NOT DETECT); Parainfluenza Virus 4 Not Detected (NOT DETECT); Respiratory Syncytial Virus Not Detected (NOT DETECT); SARS-Cov-2 (COVID-19), BioFire Detected (NOT DETECT)
[2020-09-21 03:27] LABS: BASOPHILS ABSOLUTE AUTO 0.02 K/mm3 (0.00-0.23); BASOPHILS PERCENT AUTO 0 % (0-2); EOSINOPHILS ABSOLUTE AUTO 0.01 K/mm3 (0.00-0.68); EOSINOPHILS PERCENT AUTO 0 % (0-6); Hematocrit 29.3 % (37.0-53.0); Hemoglobin 8.8 g/dL (13.5-17.5); Mean Corpuscular HGB 25.6 pg (26.0-34.0); Mean Corpuscular Volume 85 fL (80-100); Mean Platelet Volume 11.6 fL (9.1-12.4); NRBC ABSOLUTE 0.03 K/mm3 (0.00-0.02); NRBC Auto 0.4 /100 WBC (0.0-0.2); Platelet Count 273 K/mm3 (150-400); RDW Coefficient Variation 18.6 % (11.7-14.2); RDW Standard Deviation 57.6 fL (35.1-46.3); Red Blood Cell Count 3.44 M/mm3 (4.30-5.90); White Blood Cell Count 7.77 K/mm3 (4.00-11.30)
[2020-09-21 03:28] LABS: IMMATURE GRAN ABSOLUTE AUTO 0.37 K/mm3 (0.00-0.10); IMMATURE GRAN PERCENT AUTO 5 % (0-1); LYMPHOCYTES ABSOLUTE AUTO 0.86 K/mm3 (0.84-5.20); LYMPHOCYTES PERCENT AUTO 11 % (21-46); MONOCYTES ABSOLUTE AUTO 0.33 K/mm3 (0.16-1.47); MONOCYTES PERCENT AUTO 4 % (4-13); NEUTROPHILS ABSOLUTE AUTO 6.18 K/mm3 (1.96-9.15); NEUTROPHILS PERCENT AUTO 80 % (41-73)
[2020-09-21 03:45] LABS: Alanine Aminotransfer (ALT/SGP 33 U/L (12-78); Albumin, Blood 1.6 g/dL (3.4-5.0); Albumin/Globulin Ratio 0.4 (0.8-1.8); Alk Phos 48 U/L (50-136); Anion Gap 4 mmol/L (6-16); Aspartate Aminotrans (AST/SGOT 34 U/L (12-37); Bilirubin, Total 0.4 mg/dL (0.1-1.0); Blood Urea Nitrogen 28 mg/dL (8-24); Bun/Creatinine Ratio 32.9 (12.0-20.0); CO2, Blood 25 mmol/L (21-32); Calcium, Blood 7.9 mg/dL (8.5-10.1); Chloride, Blood 117 mmol/L (98-108); Creatinine, Blood 0.85 mg/dL (0.60-1.20); Globulin, Blood 4.3 g/dL (2.2-4.0); Glomerular Filtration Rate >60 (60-); Glucose, Blood 163 mg/dL (70-99); Magnesium, Blood 2.6 mg/dL (1.6-2.4); Phosphorus, Blood 2.2 mg/dL (2.5-4.9); Potassium, Blood 4.6 mmol/L (3.5-5.5); Sodium, Blood 146 mmol/L (136-145); Total Protein, Blood 5.9 g/dL (6.4-8.2)
--- NOTE | 2020-09-21 06:23 | NUR ---
SHIFT SUMMARY PT PRONED @ 21:00, PER DR ZHANG LEAVE PT PRONED FOR 12 HOURS, WILL INFORM DAYSHIFT TO UN-PRONE @ 09:00. WAS ABLE TO TURN DOWN FIO2 TO LOW OF 60% TONIGHT, MOSTLY TOLERATING REPOSITIONING. WHILE PT IS LYING WITH RIGHT LUNG UP, EXPERIENCES DESATURATION. I HAVE NOTICED THIS FOR LAST 4 NIGHTS, BOTH WHILE SUPINE AND PRONE PT EXPERIENCED THIS DIFFICULTY. MOST RECENT TURN IS WITH RIGHT SIDE UP, HAD TO TURN FIO2 BACK UP TO 100%, INFORMED RESPIRATORY THERAPY. MAINTAINED BIS ~ 50, T.O.F. STAYED 1/4 THRU NIGHT, ONE INSTANCE WAS 2/4. ASSESSMENT IS CHARTED. VSS. WILL CONTINUE TO MONITOR.
--- NOTE | 2020-09-21 08:00 | NUR ---
Received report from Leonid MADRIGAL. Patient is intubated, sdated, and paralyzed. He has 8.0 Tube and 26cm at lips. He is on settings PC 28/15/100/15 and sats 94%. He has 18ga IV in BHAKTI infusing propofol at 50 mcg/kg/min. 20ga RLFA and is infusingNimbex at 2 mcg/kg/min, and 20 ga LW infusing NS TKO. All three IV's intact and dressings WNL's. He has 16 Fr Temp pettit draining to gravity. Will un-prone at 0900. Family called and gave update.
--- NOTE | 2020-09-21 09:30 | NUR ---
Patient unproned and am meds with oral care and cath care. Another family member called and gave update. No changes to vent and or gtt settings. Sats down to 89% from 94% with un-proning. Copius amounts of mucous from mouth and nose. 2/4 TO4 and 40-50 BIS.
--- NOTE | 2020-09-21 11:30 | NUR ---
Started TF Vital High Protien at 20 ml/hr goal rate with 30 ml water flushes Q4. Decreased Propofol to 40 mcg/kg/min, no other gtt changes. BIS at 46 -55 and Nimbex at 2 mcg/kg/min. Vent settings remain the same and sats 89% since un-proned. Dr Blanca in room and ECHO will be back then possible CT. Daughter called and gave update.
--- NOTE | 2020-09-21 13:30 | NUR ---
Patient remains paralyzed and sedated and will go to CT at 1500. No changes to gtt and or vent settings.
--- NOTE | 2020-09-21 14:54 | NUR ---
Echocardiogram using 27ml of agitated saline contrast performed.
--- NOTE | 2020-09-21 15:30 | NUR ---
Patient went to CT with Rt and 2 staff, sats were 89% when leaving and when getting back 85%. Notified Dr Blanca and he stated we will watch for short perio and re-promne if needed. Family went home after talking with Dr Blanca when leaving for CT. VSS
--- NOTE | 2020-09-21 17:30 | NUR ---
Patient did not get any better on sats and maxed at 84% and Dr Blanca asked to prone him, he is slowly coming up at 88%. propofol at 40 mcg/kg/min, Nimbex at 2 mcg/kg/min and BIS 45-55 and TO4 1-2/4. VSS, See EMR. NS TKO. 8.0 ET and 26 at lips 28/15/100/15. Harrington poor jayson output 150 ml. Got partial bath after proning.
--- NOTE | 2020-09-21 20:45 | NUR ---
SHIFT ASSESSMENT ASSUMED CARE OF PT @ 1900. REPORT RECEIVED FROM KAITLIN MEJIAS. PT INTUBATED, SEDATED, AND PARALYZED. PROPOFOL GTT @ 40MCG, NIMBEX @ 1.5. 0/4 TOF, BIS 40-60. TITRATING NIMBEX AT THIS TIME. RT ADJUSTING VENT SETTINGS, CURRENTLY 100% FIO2 c O2 SATS >88%. 12HR PRONE BEGAN AT 1900. TEMP ERAZO CATH PATENT, DRAINING ELI URINE. PT AFEBRILE. TF ON SB WHILE PT IS PRONE.
[2020-09-22 04:41] LABS: BASOPHILS ABSOLUTE AUTO 0.06 K/mm3 (0.00-0.23); BASOPHILS PERCENT AUTO 1 % (0-2); EOSINOPHILS ABSOLUTE AUTO 0.02 K/mm3 (0.00-0.68); EOSINOPHILS PERCENT AUTO 0 % (0-6); Hematocrit 34.9 % (37.0-53.0); Hemoglobin 9.9 g/dL (13.5-17.5); IMMATURE GRAN ABSOLUTE AUTO 0.79 K/mm3 (0.00-0.10); IMMATURE GRAN PERCENT AUTO 6 % (0-1); LYMPHOCYTES ABSOLUTE AUTO 1.35 K/mm3 (0.84-5.20); LYMPHOCYTES PERCENT AUTO 11 % (21-46); MONOCYTES ABSOLUTE AUTO 0.68 K/mm3 (0.16-1.47); MONOCYTES PERCENT AUTO 6 % (4-13); Mean Corpuscular HGB 25.3 pg (26.0-34.0); Mean Corpuscular HGB Conc 28.4 g/dL (31.5-36.5); Mean Corpuscular Volume 89 fL (80-100); Mean Platelet Volume 12.4 fL (9.1-12.4); NEUTROPHILS ABSOLUTE AUTO 9.53 K/mm3 (1.96-9.15); NEUTROPHILS PERCENT AUTO 77 % (41-73); NRBC ABSOLUTE 0.08 K/mm3 (0.00-0.02); NRBC Auto 0.6 /100 WBC (0.0-0.2); Platelet Count 301 K/mm3 (150-400); RDW Coefficient Variation 19.6 % (11.7-14.2); RDW Standard Deviation 62.6 fL (35.1-46.3); Red Blood Cell Count 3.92 M/mm3 (4.30-5.90); White Blood Cell Count 12.43 K/mm3 (4.00-11.30)
[2020-09-22 05:30] LABS: Creatinine, Blood 1.59 mg/dL (0.60-1.20); Magnesium, Blood 2.9 mg/dL (1.6-2.4); Phosphorus, Blood 4.9 mg/dL (2.5-4.9); Potassium, Blood 5.5 mmol/L (3.5-5.5)
[2020-09-22 05:34] LABS: BAND PERCENT MAN 2 % (0-8); BASOPHILS PERCENT MAN 0 % (0-2); EOSINOPHILS PERCENT MAN 0 % (0-6); LYMPHOCYTES ABSOLUTE MAN 0.99 K/mm3 (0.84-5.20); LYMPHOCYTES PERCENT MAN 8 % (21-46); METAMYELOCYTE ABSOLUTE MAN 0.37 K/mm3 (0.00-0.00); METAMYELOCYTE PERCENT MAN 3 % (0-0); MONOCYTES ABSOLUTE MAN 0.24 K/mm3 (0.16-1.47); MONOCYTES PERCENT MAN 2 % (4-13); MYELOCYTE ABSOLUTE MAN 0.12 K/mm3 (0.00-0.00); MYELOCYTE PERCENT MAN 1 % (0-0); NEUTROPHILS ABSOLUTE MAN 10.68 K/mm3 (1.96-9.15); SEG NEUTROPHILS PERCENT MAN 84 % (41-73); TOTAL CELLS COUNTED 100
[2020-09-22 05:41] LABS: PCO2 Arterial 46.7 mmHg (35-45); PO2 Arterial 123 mmHg (80-100); pH Blood Arterial 7.28 (7.35-7.45)
--- NOTE | 2020-09-22 06:42 | NUR ---
SHIFT SUMMARY PT REMAINS INTUBATED, SEDATED, AND PARALYZED. PROPOFOL GTT REMAINS @ 40MCG/KG/MIN. NIMBEX TITRATED DOWN TO 0.5MCG/KG/MIN c TOF 2/4. VENT SETTINGS: AC/VC-28/400/75%/ PEEP-15 c O2 SATS >95%. PT REMAINS PRONE, TOLERATING SIDE TO SIDE TURNS. TEMP ERAZO CATH DRAINING DARK YELLOW URINE, MINIMAL OUTPUT THIS SHIFT. NO OTHER ACUTE CHANGES THIS SHIFT. REPORT TO ONCOMING NURSE.
--- NOTE | 2020-09-22 08:30 | NUR ---
Patient un-prone and is 8.0 ET and RT readjusted ET from 24 back to 26 cm at lips, settings of VC 24/400/15/75 and sats low 90%'s. Restarted TF vital High Protein at 20 ml/hr and adminisitered am meds. Oral care aned cath care done with positioning. His BIS was mid to high 60 and increased nimbex to 1 mcg/kg/min. He has PowerGlide in BHAKTI infusing Propofol at 40 mcg/kg/min, LLFA 20 ga infusing NS TKO. RLFA 20 ga infusing nimbex at 1 mcg/kg/min. Changed linen when unproning patient.
--- NOTE | 2020-09-22 10:00 | NUR ---
Increased Nimbex to 1.5 mcg/kg/min and BIS came down to 50's from 60's. No other changes with vent or gtt's
--- NOTE | 2020-09-22 11:30 | NUR ---
No changes to vent settings. Changed Nimbex to 1.0 mcg/kg/min and increased propofol to 50 mcg/kg/min and BIS continues to run 45-55 and he seems to be at good sedation, less coughing. Sats have been 88-91%. Oral care and partial bath. VSS, See EMR. No other significant change, TF continues and no residuals.
--- NOTE | 2020-09-22 13:30 | NUR ---
New tube feeed plan if unable to keep TF while proned. BIS remains 45-55 and TO4 1-2/4. He continues to have poor urine output. No changes to gtt's and or vent settings and remains at VC 24/400/15/75.
--- NOTE | 2020-09-22 15:30 | NUR ---
Re-proning at 1700 and will try to elevate head so can keep TF going at 20 as request by dietary. VSS, See EMR. No vent or gtt changes. Sats maintaing 91% on same vent settings. BIS 45-55 and TO4 1/4. Repositioned and oral care.
--- NOTE | 2020-09-22 18:20 | NUR ---
Proned patient and was able to keep bed at 15 degrees and continues TF vital High Protien at 20 ml/hr. Starte D5 bicarb at 75 ml/hr and LR at 75 ml/hr. Propofol continues at 50 mcg/kg/min and Nimbex at 1 mcg/kg/min and BIS at 45-55 with adequate sedation. Vent settings VC 24/400/15/70 with sats >90%. Daughter called and gave update.
--- NOTE | 2020-09-22 19:30 | NUR ---
REPORT RECEIVED FROM KAITLIN ROBBINS. PT IN PRONE POSITION, PARALYZED ON NIMBEX GTT INFUSING @ 1 MCG/KG/MIN. PROPOFOL INFUSING @ 50 MCKG/KG/MIN, LR @ 75ML/HR, D5NS @ 75 ML/HR. ERAZO LEAKING, AND SMALL AMT ELI URINE IN BAG. OG IN PLACE WITH TF @ 20 ML/HR-VITAL HIGH PROTEIN. CONTINUE ASSESSMENT AND CARE.
--- NOTE | 2020-09-22 20:00 | NUR ---
ASSESS PT ERAZO LEAKING LARGE AMTS, LINEN WET-CHANGED, ERAZO REMOVED AND NEW ONE PLACED- LARGE AMTS OF ELI URINED OUT-APROX 2000ML NOW. BIS MONITOR REPLACED -READING 40-45. CONTINUE PROPOFOL AND NIMBEX AT CURRENT RATES. TURNED PT WITH RT-AND 2 CNAS. FULL ASSESSMENT DONE-SEE ASSESSMENT FLOWSHEET. CONTINUE ASSESSMENTS AND CARE.
--- NOTE | 2020-09-23 00:34 | NUR ---
ASSESS NO CHANGES, CONTINUE GTTS AT SAME RATE.CONTINUE VENT. Q2 REPOSITION IN THE PRONE POSITION. CONTINUE ASSESSMENTS AND CARE.
--- NOTE | 2020-09-23 04:02 | NUR ---
ASSESS: BIS 45-60, PT REMIANS ON PROPOFOL AND NIMBEX WITH NO CHANGES IN RATE. ERAZO DRAINING PALE YELLOW WITH SEDEMENT NOTED. BS REMAINS DECREASED. NO CHANGES TO VENT SETTINGS. NO SECREATIONS SXN, NO COUGH, NO GAG. LARGE AMTS ORAL SECREATIONS SXNED. ORAL CARE AND TURNS CONTINUE @ Q 2 HOURS- CONTINUE ASSESSMENTS AND CARE.
[2020-09-23 05:15] LABS: pH Blood Arterial 7.33 (7.35-7.45)
[2020-09-23 05:16] LABS: PCO2 Arterial 47.9 mmHg (35-45)
[2020-09-23 06:22] LABS: Magnesium, Blood 2.7 mg/dL (1.6-2.4); Phosphorus, Blood 4.2 mg/dL (2.5-4.9)
--- NOTE | 2020-09-23 06:39 | NUR ---
END OF SHIFT NOTE PT REMAINS IN PRONE POSITION(PLAN TILL 9AM), PARALYZED ON NIMBEX @ 1 MCK/KG/MIN. PROPOFOL INFUSING @ 50 MCG/KG/MIN. TRAIN OF 4 4/4 AT LEVEL 5 INTENSITY, BIS @ 50-60 @ THIS TIME. PT NOT BREATHING OVER VENT. D5 BICARB @ 75ML/HR, LR @ 75 ML/HR. ERAZO TO DRAIN-PALE YELLOW OUTPUT. VENT: AC VC TV 400, PEEP 15, 70%, RR 28. LABS SENT. CONTINUE ASSESSMENTS AND CARE TILL REPORT OFF TO DAYSHIFT RN.
--- NOTE | 2020-09-23 09:36 | NUR ---
ASSUMED CARE BEDSIDE REPORT FROM SHAHANA MADRIGAL. PT INTUBATED, SEDATED AND PARALYZED. VENT SETTINGS AC/PC 28/400/15/70%. PROPOFOL GTT 50 MCG/KG/MIN, BIS RANGE 40-50, NIMBEX 1 MCG/KG/MIN, TOF 4/4 BUT PT COMPLIANT c VENT. LUNGS DIMINISHED THROUGHOUT. SCANT SECRETIONS THROUGH ETT. PT PRONED AT START OF SHIFT, REPOSITIONED SUPINE AT 0900. TOLERATED WELL. ABD ROUND, SOFT, BT X4. TUBE FEEDS RESTARTED AT 30 ML/HR. ERAZO PATENT, DRAINING YELLOW URINE c SEDIMENT TO GRAVITY. POWERGLIDE TO LUE, DRESSING C/D/I. ST RATE 110'S. BP STABLE. WILL CONTINUE TO MONITOR.
[2020-09-23 12:34] LABS: BASOPHILS ABSOLUTE AUTO 0.02 K/mm3 (0.00-0.23); BASOPHILS PERCENT AUTO 0 % (0-2); EOSINOPHILS ABSOLUTE AUTO 0.03 K/mm3 (0.00-0.68); EOSINOPHILS PERCENT AUTO 0 % (0-6); Mean Corpuscular HGB 25.6 pg (26.0-34.0); Mean Corpuscular HGB Conc 28.6 g/dL (31.5-36.5); Mean Corpuscular Volume 90 fL (80-100); Mean Platelet Volume 11.5 fL (9.1-12.4); NRBC ABSOLUTE 0.06 K/mm3 (0.00-0.02); NRBC Auto 0.8 /100 WBC (0.0-0.2); Platelet Count 250 K/mm3 (150-400); RDW Coefficient Variation 19.7 % (11.7-14.2); RDW Standard Deviation 63.5 fL (35.1-46.3); Red Blood Cell Count 3.13 M/mm3 (4.30-5.90); White Blood Cell Count 7.53 K/mm3 (4.00-11.30)
[2020-09-23 12:35] LABS: IMMATURE GRAN ABSOLUTE AUTO 0.29 K/mm3 (0.00-0.10); IMMATURE GRAN PERCENT AUTO 4 % (0-1); LYMPHOCYTES PERCENT AUTO 16 % (21-46); MONOCYTES ABSOLUTE AUTO 0.35 K/mm3 (0.16-1.47); MONOCYTES PERCENT AUTO 5 % (4-13); NEUTROPHILS ABSOLUTE AUTO 5.64 K/mm3 (1.96-9.15); NEUTROPHILS PERCENT AUTO 75 % (41-73)
[2020-09-23 12:42] LABS: Albumin, Blood 1.5 g/dL (3.4-5.0); Albumin/Globulin Ratio 0.4 (0.8-1.8); Bilirubin, Total 0.3 mg/dL (0.1-1.0); Bun/Creatinine Ratio 24.4 (12.0-20.0); Calcium, Blood 7.8 mg/dL (8.5-10.1); Creatinine, Blood 2.42 mg/dL (0.60-1.20); Globulin, Blood 4.2 g/dL (2.2-4.0); Potassium, Blood 4.5 mmol/L (3.5-5.5); Total Protein, Blood 5.7 g/dL (6.4-8.2)
[2020-09-23 13:02] LABS: BASOPHILS PERCENT MAN 0 % (0-2); EOSINOPHILS ABSOLUTE MAN 0.15 K/mm3 (0.00-0.68); EOSINOPHILS PERCENT MAN 2 % (0-6); LYMPHOCYTES ABSOLUTE MAN 1.05 K/mm3 (0.84-5.20); LYMPHOCYTES PERCENT MAN 14 % (21-46); MONOCYTES ABSOLUTE MAN 0.22 K/mm3 (0.16-1.47); MONOCYTES PERCENT MAN 3 % (4-13); MYELOCYTE ABSOLUTE MAN 0.37 K/mm3 (0.00-0.00); MYELOCYTE PERCENT MAN 5 % (0-0); NEUTROPHILS ABSOLUTE MAN 5.72 K/mm3 (1.96-9.15); SEG NEUTROPHILS PERCENT MAN 76 % (41-73); TOTAL CELLS COUNTED 100
--- NOTE | 2020-09-23 15:20 | NUR ---
PT PRONED PLAN TO PRONE 6 HOURS, SUPINE 6 HOURS AND REPEAT PER DR MOODY. LACRILUBE APPLIED. PT PRONED. TOLERATED WELL.
--- NOTE | 2020-09-23 17:26 | NUR ---
SHIFT SUMMARY PT REMAINS INTUBATED AND SEDATED. VENT SETTINGS AC/PC 25/400/15/80%. PROPOFOL CONTINUES AT 50 MCG/KG/MIN, NIMBEX D/C'D. TOLERATING VENT, OCCASIONAL COUGH, MEDICATED c FENTANYL PRN. LUNGS DIMINISHED THROUGHOUT. PRONING SCHEDULE CHANGED TO Q6 PRONING. TUBE FEEDS CHANGED TO VHP AT 20 ML/HR CONTINUOUS. IVF'S D/C'D. ERAZO PATENT, DRAINING TO GRAVITY. RECTAL TUBE PLACED. BP STABLE. ST ON MONITOR, RATE 100'S. SISTER UPDATED THIS SHIFT. WILL CONTINUE TO MONITOR UNTIL REPORT TO ONCOMING NURSE.
--- NOTE | 2020-09-23 20:00 | NUR ---
ASSUMED CARE OF PT AT 191. REPORT RECEIVED. PT PRESENTS IN BED. INTUBATED - AC/VC 28, Tv 400, FIO2 80 PERCENT, PEEP 15. PT TOLERATING THIS WELL. PROPOFOL AT 50 MCG/KG/MIN. PT PRESENTLY PRONE. PLAN TO UNPRONE PT AT 2099. SPOKE WITH STAFF AND RT. WILL REVIEW CHART AND PLAN OF CARE FOR THIS PT.
--- NOTE | 2020-09-23 22:37 | NUR ---
PT WAS SUCCESSFULLY UN-PRONE AT 2100. THREE STAFF WITH RESPIRATORY CARE. NO ISSUES TO REPORT. PT DOES REQUIRE INCREASE IN FIO2 FROM 80 PERCENT TO 85 PERCENT TO MAINTAIN SATURATIONS 90-92 PERCENT.
--- NOTE | 2020-09-24 02:37 | NUR ---
CHANGE IN STATUS NOTED HR INCREASED FROM SINUS OF 130'S TO SINUS OF 190'S. UPON ENTERING ROOM PT RESP RATE WAS IN THE 30'S. HE WAS ABLE TO RESPOND AND OPEN EYES TO VERBAL STIMULI. MEDICATED WITH 50MCG OF FENTANYL AND 2MG OF ATIVAN PER ORDERS. ASSESSED IV ACCESSES AT THIS TIME IN WHICH PROPOFOL WAS INFUSING AT 55MCG/KG/MIN; HOWEVER, BOTH IV'S WERE NOTED TO BE LEAKING. MOVED PROPOFOL OVER TO MIDLINE TO LEFT UPPER ARM AND DISCONTINUED BOTH FOREARM IV'S. INITIATED A NEW 20G TO LEFT FOREARM. UPDATED PRIMARY RN OF CHANGE.
[2020-09-24 03:29] LABS: BASOPHILS ABSOLUTE AUTO 0.02 K/mm3 (0.00-0.23); BASOPHILS PERCENT AUTO 0 % (0-2); EOSINOPHILS ABSOLUTE AUTO 0.07 K/mm3 (0.00-0.68); EOSINOPHILS PERCENT AUTO 1 % (0-6); Hematocrit 28.4 % (37.0-53.0); Hemoglobin 8.6 g/dL (13.5-17.5); IMMATURE GRAN ABSOLUTE AUTO 0.42 K/mm3 (0.00-0.10); IMMATURE GRAN PERCENT AUTO 4 % (0-1); LYMPHOCYTES ABSOLUTE AUTO 1.03 K/mm3 (0.84-5.20); LYMPHOCYTES PERCENT AUTO 10 % (21-46); MONOCYTES ABSOLUTE AUTO 0.43 K/mm3 (0.16-1.47); MONOCYTES PERCENT AUTO 4 % (4-13); Mean Corpuscular HGB 25.6 pg (26.0-34.0); Mean Corpuscular HGB Conc 30.3 g/dL (31.5-36.5); Mean Platelet Volume 10.6 fL (9.1-12.4); NEUTROPHILS ABSOLUTE AUTO 8.05 K/mm3 (1.96-9.15); NEUTROPHILS PERCENT AUTO 80 % (41-73); NRBC ABSOLUTE 0.02 K/mm3 (0.00-0.02); NRBC Auto 0.2 /100 WBC (0.0-0.2); Platelet Count 253 K/mm3 (150-400); RDW Coefficient Variation 19.2 % (11.7-14.2); RDW Standard Deviation 58.2 fL (35.1-46.3); Red Blood Cell Count 3.36 M/mm3 (4.30-5.90); White Blood Cell Count 10.02 K/mm3 (4.00-11.30)
[2020-09-24 03:30] LABS: Mean Corpuscular Volume 85 fL (80-100)
[2020-09-24 03:53] LABS: Bun/Creatinine Ratio 35.4 (12.0-20.0); Calcium, Blood 8.3 mg/dL (8.5-10.1); Creatinine, Blood 1.44 mg/dL (0.60-1.20); Potassium, Blood 4.6 mmol/L (3.5-5.5)
--- NOTE | 2020-09-24 06:30 | NUR ---
CALL MADE TO DR BLUE THIS AM CONCERNING CONSISTANT ELEVATED HEART RATE. GAVE UPDATE ON PT'S STATUS. ORDERS RECEIVED. 2.5 MG METOPROLOL GIVEN IV. HEART RATED DECREASES FROM 160'S DOWN TO 110'S. PT CURRENTLY PRONED. OXYGEN SATURATIONS MAINTAIN > 90 PERCENT. WILL CONTINUE TO MONITOR PT, AND WILL REPORT OFF TO ONCOMING RN.
--- NOTE | 2020-09-24 06:39 | NUR ---
PT HAS BEEN MEDICATED SEVERAL TIMES WITH LIBRIUM FOR W/D'S SOME GOOD AFFECT. PT CONTINUES ON PRECEDEX DRIP AT 0.7 MCG'S. REMAINS WITH AUDITORY AND VISUAL HALUCINATIONS. HAS NOT ATTEMPTED TO INJEST ANY MEDICAL EQUIPTMENT OR ATTENDS. HAS TRIED TO MAKE PHONE CALLS ON THROUGH HIS BED RAILING. MOSTLY, PT HAS REMAINED PLEASANT. WILL CONTINUE MONITOR PT, AND WILL REPORT OFF TO ONCOMING RN.
--- NOTE | 2020-09-24 09:41 | NUR ---
ASSUMED CARE REPORT FROM JOVON MADRIGAL. PT INTUBATED AND SEDATED. PROPOFOL GTT FOR SEDATION. COUGH/GAG REFLEX. NO RESPONSIVE TO PAINFUL STIMULI. VENT SETTINGS AC 28/400/15/80%. PT PRONE ON SHIFT CHANGE, SUPINE AT 0900. NO DIFFICULTIES. LUNGS DIM IN BASES. SMALL AMOUNT OF PINK SECRETIONS THROUGH ETT. TUBE FEEDS AT GOAL OF 20 ML/HR c 30 ML FLUSH q4 HR. RESIDUALS THIS AM AT 20ML. ABD ROUND, DISTENDED. HYPOACTIVE BT. ERAZO PATENT, DRAINING YELLOW URINE c SEDIMENT TO GRAVITY. RECTAL TUBE IN PLACE, DRAINING LIQUID BROWN STOOL TO GRAVITY. GENERALIZED DEPENDENT EDEMA. BP STABLE. PLAN TO PRONE AT 1500. WILL CONTINUE TO MONITOR.
[2020-09-24 15:42] LABS: PCO2 Arterial 46.7 mmHg (35-45); PO2 Arterial 58.7 mmHg (80-100); pH Blood Arterial 7.41 (7.35-7.45)
--- NOTE | 2020-09-24 17:34 | NUR ---
SHIFT SUMMARY PT REMAINS INTUBATED AND SEDATED. VENT SETTINGS AC 28/400/15/80%. LUNGS CLEAR. SCANT THIN PINK SECRETIONS THROUGH ETT. COUGH REFLEX PRESENT. PT OCCASIONALLY DOUBLE STACKS ON VENT, MEDICATED c FENTANYL PRN. PROPOFOL GTT AT 50 MCG/KG/MIN. PT UNRESPONSIVE TO PAINFUL STIMULI. DID NOT GIVE SEDATION VACATION THIS SHIFT FOR VENT COMPLIANCE. VENT SETTINGS CHANGED TO AC 28/400/12/70 FOR SHORT PERIOD OF TIME, O2 SATS DECREASED TO LOW 80'S. NO PRONING THIS SHIFT OR NOC SHIFT PER DR MOODY. WILL REASSESS IN AM. TUBE FEEDS CONTINUE AT GOAL, MINIMAL RESIDUALS THIS SHIFT. NON MEASUREABLE AMOUNT IN RECTAL TUBE, DRAINING TO GRAVITY. ERAZO PATENT, DRAINING YELLOW URINE c SEDIMENT TO GRAVITY. 900 ML OUT THIS SHIFT. HR REMAINED ST, 100'S ENTIRE SHIFT. BP STABLE. WILL CONTINUE TO MONITOR UNTIL REPORT TO ONCOMING NURSE.
--- NOTE | 2020-09-24 20:00 | NUR ---
ASSUMED CARE OF PT AT 1915. REPORT RECEIVED. PT PRESENTS IN BED. INTUBATED AC/VC 24, Tv 400, FIO2 80 %, PEEP 15. PT TOLERATING THIS WELL. TUBE FEEDING AT GOAL. < 10 ML RESIDUAL FROM OGT. SINUS TACH PER MONITOR. RATES LOW 100'S. PROPOFOL INFUSING AT 50 MCG/KG/MIN. WILL REVIEW CHART AND PLAN OF CARE FOR THIS PT.
--- NOTE | 2020-09-24 23:00 | NUR ---
PT HAS COMPLETE BEDBATH DONE. DOES WELL WHEN FIO2 INCREASED TO 100 PERCENT. DOES DESATURATE INTO HIGH 80 PERCENTS FOR A SHORT PERIOD THOUGH RECOVERS RATHER QUICK. HAVE BEEN ABLE TO SUCTION SOME WHITE (SLIGHT TINGE OF PINK) SECRETIONS FROM ETT. CONTINUES ON TUBE FEEDING WITHOUT ISSUES. DIGNISHIELD TO GRAVITY DRAINAGE OF BROWN LIQUID STOOL. URINARY OUTPUT Q.S. WILL CONTINUE TO MONITOR PT.
--- NOTE | 2020-09-25 00:56 | NUR ---
PT TOLERATATING TURNS WELL. DURING TURN, PT HAS AN INCREASE IN SECRETIONS THAT WAS OBTAIN PER ETT. HAS BEEN ABLE TO MAINTAIN 91-93 PERCENT SATURATIONS. HEART RATE REMAINS IN SINUS TACH WITH RATES IN 108-118. WILL CONTINUE TO MONITOR PT.
[2020-09-25 02:53] LABS: PCO2 Arterial 51.1 mmHg (35-45); PO2 Arterial 58.4 mmHg (80-100); pH Blood Arterial 7.39 (7.35-7.45)
[2020-09-25 03:31] LABS: BASOPHILS ABSOLUTE AUTO 0.01 K/mm3 (0.00-0.23); BASOPHILS PERCENT AUTO 0 % (0-2); EOSINOPHILS ABSOLUTE AUTO 0.13 K/mm3 (0.00-0.68); EOSINOPHILS PERCENT AUTO 1 % (0-6); Hemoglobin 8.7 g/dL (13.5-17.5); IMMATURE GRAN ABSOLUTE AUTO 0.23 K/mm3 (0.00-0.10); IMMATURE GRAN PERCENT AUTO 2 % (0-1); LYMPHOCYTES PERCENT AUTO 14 % (21-46); MONOCYTES ABSOLUTE AUTO 0.46 K/mm3 (0.16-1.47); MONOCYTES PERCENT AUTO 4 % (4-13); Mean Corpuscular Volume 87 fL (80-100); Mean Platelet Volume 11.6 fL (9.1-12.4); NEUTROPHILS ABSOLUTE AUTO 8.31 K/mm3 (1.96-9.15); NEUTROPHILS PERCENT AUTO 78 % (41-73); NRBC ABSOLUTE 0.03 K/mm3 (0.00-0.02); NRBC Auto 0.3 /100 WBC (0.0-0.2); Platelet Count 257 K/mm3 (150-400); RDW Coefficient Variation 19.6 % (11.7-14.2); Red Blood Cell Count 3.35 M/mm3 (4.30-5.90); White Blood Cell Count 10.64 K/mm3 (4.00-11.30)
[2020-09-25 03:51] LABS: Anion Gap 3 mmol/L (6-16); Blood Urea Nitrogen 54 mg/dL (8-24); Bun/Creatinine Ratio 46.6 (12.0-20.0); CO2, Blood 29 mmol/L (21-32); Calcium, Blood 8.6 mg/dL (8.5-10.1); Chloride, Blood 112 mmol/L (98-108); Creatinine, Blood 1.16 mg/dL (0.60-1.20); Glomerular Filtration Rate >60 (60-); Glucose, Blood 187 mg/dL (70-99); Potassium, Blood 4.8 mmol/L (3.5-5.5); Sodium, Blood 144 mmol/L (136-145)
--- NOTE | 2020-09-25 04:22 | NUR ---
PT BEGINS WITH LOW GRADE FEVER AND IS MEDICATED WITH 650 MG TYLENOL PER OGT. PREVIOUSLY PT HAS QUITE A COUGHING JAG THAT IS USEFUL IN HELPING TO RETURN MODERATE TO LARGE AMOUNT OF CREAM COLORED SECRETIONS PER ETT. RT HAD INCREASED FIO2 TO 100 PERCENT DURING THIS TIME WITH COUGH. WILL MONITOR FOR ABILITY TO TITRATE FIO2 BACK LOWER IF ABLE.
--- NOTE | 2020-09-25 06:19 | NUR ---
PT CONTINUES WITH INCREASE IN SECRETIONS BEING SUCTIONED PER ETT. NO BLOOD TINGING NOTED. CURRENT VENT SETTINGS: AC/VC 28, Tv 400, FIO2 80 PERCENT, AND PEEP 15. PT HAS TOLERATED TURNS IN BED Q 2 HOURS. DIGNISHIELD WITH LIQUID BROWN STOOL. 100 ML OUT THIS SHIFT. URINE OUTPUT Q.S. TEMP DOWN TO 99.9 PER TEMP PROBE ERAZO. WILL CONTINUE TO MONITOR PT, AND WILL REPORT OFF TO ONCOMING RN.
--- NOTE | 2020-09-25 08:46 | NUR ---
ASSUMED CARE REPORT FROM JOVON MADRIGAL AT 0700. PT INTUBATED AND SEDATED. VENT SETTINGS AC 28/400/15/80%. LUNGS DIM IN BASES. SMALL AMOUNT OF THIN YELLOW SECRETIONS FROM ETT. COUGH/GAG/SWALLOW REFLEX PRESENT. [id number] PLACED ON STANDBY FOR SHORT PERIOD OF TIME, PT RR INCREASED TO HIGH 30'S AND COUGHING. NO RESPONSE TO VERBAL OR PAINFUL STIMULI. PROPOFOL RESTARTED AT 30 MCG/KG/MIN AND MEDICATED c FENTANYL. ABD ROUND, SOFT. BT X 4. TUBE FEEDS AT GOAL, 20 ML/HR c 30 ML FLUSH q4 HR. RESIDUALS 10 ML THIS AM. ERAZO PATENT, DRAINING YELLOW URINE c SEDIMENT TO GRAVITY. RECTAL TUBE DRAINING LIQUID BROWN STOOL TO GRAVITY. GENERALIZED EDEMA TO EXTREMITIES. ELEVATED ON PILLOWS. ST ON MONITOR, RATE 110'S. BP STABLE. WILL CONTINUE TO MONITOR.
--- NOTE | 2020-09-25 11:55 | NUR ---
PRONING PT PRONED AT 1130 s DIFFICULTY. EYE CARE AND PRESSURE POINTS ADDRESSED. WILL UNPRONE AT 1745.
--- NOTE | 2020-09-25 16:30 | NUR ---
ASSESSMENT- REPORT FROM ANDEEM MADRIGAL. PT SEDATED WITH PROPOFOL AT 45 MCG/KG/MIN, NO RESPONSE TO STIMULUS. NO S/S PAIN. ORALLY INTUBATED, TUBE SECURE. PRONE POSITION NOW-REPOSITIONED ARMS AND PROPPED WITH PILLOWS TO RELIEVE/CHANGE PRESSURE POINTS. NSR. BP STABLE. TUBE FEEDING VIA OGT INTACT AT GOAL RATE 20 CC/HR, RESIDUAL 10 CC REPLACED. ABDOMEN LARGE, SOFT. UO GOOD VIA ERAZO. RECTAL TUBE INTACT. PIV LEFT WRIST AND POWER GLIDE LEFT UPPER ARM DI. BILATERAL WRIST RESTRAINTS FOR SAFETY, EXTUBATION RISK. ENHANCED PRECAUTIONS.
--- NOTE | 2020-09-25 17:58 | NUR ---
PT REPOSITIONED TO SUPINE WITH MULTIPLE STAFF AND THERAPIST. TOLERATED FAIR-OXYGEN SATURATIONS INITIALLY DECREASED TO 81%-RECOVERED WITH BRIEF INCREASE TO 100%. SINUS TACH, BP STABLE. LINES INTACT. BILATERAL WRIST RESTRAINTS.
--- NOTE | 2020-09-25 20:25 | NUR ---
PATIENT INTUBATED AND SEDATED WITH PROPOFOL 40 MCG, RESP 30'S, NO MOVEMENT SEEN IN EXTREMITIES. VENT AC 28, TV 400, PEEP 15, FIO2 85% LUNG SOUNDS DECREASED T/O. OG IN PLACE WITH TUBE FEEDING VITAL HP AT GOAL RATE OF 20 CC/HR. RECTAL TUBE IN PLACE DRAINING LIQUID BROWN STOOL.
[2020-09-26 03:24] LABS: PCO2 Arterial 52.1 mmHg (35-45); PO2 Arterial 70.8 mmHg (80-100)
[2020-09-26 04:08] LABS: BASOPHILS ABSOLUTE AUTO 0.02 K/mm3 (0.00-0.23); BASOPHILS PERCENT AUTO 0 % (0-2); EOSINOPHILS ABSOLUTE AUTO 0.17 K/mm3 (0.00-0.68); EOSINOPHILS PERCENT AUTO 2 % (0-6); IMMATURE GRAN ABSOLUTE AUTO 0.19 K/mm3 (0.00-0.10); IMMATURE GRAN PERCENT AUTO 3 % (0-1); LYMPHOCYTES ABSOLUTE AUTO 1.12 K/mm3 (0.84-5.20); LYMPHOCYTES PERCENT AUTO 15 % (21-46); MONOCYTES ABSOLUTE AUTO 0.39 K/mm3 (0.16-1.47); MONOCYTES PERCENT AUTO 5 % (4-13); Mean Corpuscular HGB 25.7 pg (26.0-34.0); Mean Corpuscular HGB Conc 29.6 g/dL (31.5-36.5); Mean Corpuscular Volume 87 fL (80-100); Mean Platelet Volume 11.9 fL (9.1-12.4); NEUTROPHILS ABSOLUTE AUTO 5.79 K/mm3 (1.96-9.15); NEUTROPHILS PERCENT AUTO 75 % (41-73); Platelet Count 214 K/mm3 (150-400); RDW Coefficient Variation 19.3 % (11.7-14.2); RDW Standard Deviation 59.9 fL (35.1-46.3); Red Blood Cell Count 3.11 M/mm3 (4.30-5.90); White Blood Cell Count 7.68 K/mm3 (4.00-11.30)
[2020-09-26 04:23] LABS: Anion Gap 2 mmol/L (6-16); Blood Urea Nitrogen 49 mg/dL (8-24); Bun/Creatinine Ratio 49.4 (12.0-20.0); CO2, Blood 31 mmol/L (21-32); Calcium, Blood 8.6 mg/dL (8.5-10.1); Chloride, Blood 113 mmol/L (98-108); Creatinine, Blood 0.99 mg/dL (0.60-1.20); Glomerular Filtration Rate >60 (60-); Glucose, Blood 163 mg/dL (70-99); Potassium, Blood 4.7 mmol/L (3.5-5.5); Sodium, Blood 146 mmol/L (136-145)
--- NOTE | 2020-09-26 06:07 | NUR ---
SUMMARY PATIENT REMAINS INTUBATED AND SEDATED WITH PROPOFOL TITRATED T/O NIGHT NOW AT 45 MCG. FENTANYL GIVEN NEEDED FOR INCREASED RESP OR INCREASE IN COUGHING. ETT IN PLACE RETAPED BY RT. VENT REMAINS AT AC 28, TV 400, PEEP 15, FIO2 85% SUCTIONING SMALL AMT OF WHITE TO LIGHT YELLOW SPUTUM. OG REMAINS IN PLACE WITH VITAL HP AT GOAL RATE OF 20 CC/HR WITH MIN RESIDUALS. RECTAL TUBE REMAINS IN PLACE DRAINING LIQUID BROWN STOOL.
--- NOTE | 2020-09-26 08:00 | NUR ---
ASSUMED CARE: REPORT RECEIVED FROM JOSIANE Garrett RN. ASSUMED CARE OF THIS PT AT APPROX 0700. ON ASSESSMENT, THE PT IS SEDATED W/ PROPOFOL & INTUBATED. HE IS NOT MOVING EXTREMITIES SPONTANEOUSLY, BUT DOES WITHDRAW SLIGHTLY FROM PAINFUL STIMULUS. LS COARSE T/O, VENT SETTINGS: AC 28/400/15/85%. O2 SATS > 90% ON AVG, DESATS TO 86% NOTED W/ COUGHING. MONITOR SHOWS SR-ST W/ HR 90-110s, BP STABLE. OGT IN PLACE W/ TUBE FEEDS INFUSING AT GOAL RATE, LOW RESIDUALS. TEMP ERAZO PATENT/ DRAINING DARK YELLOW URINE. SKIN CONDITION OVERALL INTACT, Q2H REPOSITIONING TO MAINTAIN SKIN INTEGRITY. WILL CONTINUE TO MONITOR & UPDATE NEEDED.
--- NOTE | 2020-09-26 14:00 | NUR ---
DR LANCASTER: PROVIDER AT BEDSIDE TO EVAL PT THIS AFTERNOON. DISCUSSED POSSIBILITY OF PICC LINE PLACEMENT THE PT IS NOT NEAR EXTUBATION & HAS PERIPHERAL ACCESS THAT WILL NEED TO BE ROTATED OUT SOON. SHE FEELS THAT A PICC LINE WOULD BE APPROPRIATE FOR THIS PT & WILL LIKELY ORDER ONE TO BE PLACED TOMORROW. NO OTHER CHANGES AT THIS TIME.
--- NOTE | 2020-09-26 18:41 | NUR ---
SHIFT SUMMARY: NO ACUTE CHANGES SINCE PRIOR UPDATES. THE PT REMAINS SEDATED W/ PROPOFOL & INTUBATED. BILAT SOFT WRIST RESTRAINTS IN PLACE. SEDATION DIFFICULT AT TIMES THIS SHIFT W/ PT STACKING BREATHS AT TIMES. LS OCCASIONALLY COARSE, CLEARED W/ ETT SUCTIONING. COPIOUS AMNTS THICK HU SPUTUM W/ BLOODY STREAKS NOTED. VENT SETTINGS: AC 28/400/15/85% W/ O2 SATS > 92% ON AVG, DESATS TO 87% W/ COUGHING. MONITOR SHOWS SR-ST W/ HR 90-110s, BP STABLE. OGT IN PLACE W/ TUBE FEEDS VITAL HP INFUSING AT GOAL RATE OF 20 ML/HR W/ 30 ML H2O FLUSH Q4H, LOW RESIDUALS. RECTAL TUBE IN PLACE DRAINING BROWN LIQUID STLS. TEMP ERAZO PATENT/ DRAINING DARK YELLOW URINE W/ MOD AMNTS SEDIMENT. DIURESIS PER EMAR - SEE I&O. SKIN CONDITION OVERALL INTACT, Q2H REPOSITIONING TO MAINTAIN SKIN INTEGRITY. WILL CONTINUE TO MONITOR & REPORT OFF TO ONCOMING RN.
--- NOTE | 2020-09-26 20:31 | NUR ---
PATIENT REMAINS INTUBATED AND SEDATED, PROPOFOL 60 MCG INFUSING. GRIMACING WITH ORAL CARE AND REPOSITIONING. RESP UP TO MID 30'S WITH STIMULI VENT AC 28, TV 400, PEEP 15, FIO2 85% SUCTIONING THICK HU BLOOD TINGED SPUTUM. OG IN PLACE WITH VITAL HP AT GOAL RATE 20 CC/HR. RECTAL TUBE REMAINS IN PLACE DRAINING LIQUID BROWN STOOL.
[2020-09-27 06:27] LABS: BASOPHILS ABSOLUTE AUTO 0.01 K/mm3 (0.00-0.23); BASOPHILS PERCENT AUTO 0 % (0-2); EOSINOPHILS ABSOLUTE AUTO 0.12 K/mm3 (0.00-0.68); EOSINOPHILS PERCENT AUTO 2 % (0-6); Hemoglobin 7.8 g/dL (13.5-17.5); IMMATURE GRAN ABSOLUTE AUTO 0.13 K/mm3 (0.00-0.10); IMMATURE GRAN PERCENT AUTO 2 % (0-1); LYMPHOCYTES ABSOLUTE AUTO 0.95 K/mm3 (0.84-5.20); LYMPHOCYTES PERCENT AUTO 14 % (21-46); MONOCYTES ABSOLUTE AUTO 0.42 K/mm3 (0.16-1.47); MONOCYTES PERCENT AUTO 6 % (4-13); Mean Corpuscular HGB 25.5 pg (26.0-34.0); Mean Corpuscular HGB Conc 28.9 g/dL (31.5-36.5); Mean Corpuscular Volume 88 fL (80-100); Mean Platelet Volume 12.5 fL (9.1-12.4); NEUTROPHILS ABSOLUTE AUTO 4.96 K/mm3 (1.96-9.15); NEUTROPHILS PERCENT AUTO 75 % (41-73); NRBC ABSOLUTE 0.02 K/mm3 (0.00-0.02); NRBC Auto 0.3 /100 WBC (0.0-0.2); Platelet Count 180 K/mm3 (150-400); RDW Standard Deviation 60.8 fL (35.1-46.3); Red Blood Cell Count 3.06 M/mm3 (4.30-5.90); White Blood Cell Count 6.59 K/mm3 (4.00-11.30)
--- NOTE | 2020-09-27 06:30 | NUR ---
SUMMARY PATIENT REMAINS INTUBATED AND SEDATED PROPOFOL TITRATED DURING THE NIGHT IS NOW AT 50 MCG. FENTANYL IV NEEDED. VENT AC 28, TV 400, PEEP 15, FIO2 95% SUCTIONING THICK HU SPUTUM T/O NIGHT. OG REMAINS IN PLACE WITH VITAL HP AT GOAL RATE OF 20 CC/HR WITH MIN RESIDUAL T/O NIGHT. RECTAL TUBE CONTINUES TO DRAIN LIQUID BROWN STOOL.
[2020-09-27 07:08] LABS: Anion Gap 4 mmol/L (6-16); Blood Urea Nitrogen 55 mg/dL (8-24); Bun/Creatinine Ratio 48.7 (12.0-20.0); CO2, Blood 30 mmol/L (21-32); Calcium, Blood 8.6 mg/dL (8.5-10.1); Chloride, Blood 110 mmol/L (98-108); Creatinine, Blood 1.13 mg/dL (0.60-1.20); Glomerular Filtration Rate >60 (60-); Glucose, Blood 152 mg/dL (70-99); Potassium, Blood 4.9 mmol/L (3.5-5.5); Sodium, Blood 144 mmol/L (136-145)
--- NOTE | 2020-09-27 07:50 | NUR ---
ASSUMED CARE: REPORT RECEIVED FROM JOSIANE Garrett RN. ASSUMED CARE OF THIS PT AT APPROX [id number]. ON ASSESSMENT, THE PT IS SEDATED W/ PROPOFOL & INTUBATED. HE IS RESTING QUIETLY, BUT DOES OCCASIONALLY ALARM VENT WHILE COUGHING OR STACKING BREATHS. LS ARE DIM IN BASES, PT HAVING COPIOUS AMNTS THICK HU SPUTUM THROUGH ETT. VENT SETTINGS: AC 28/400/15/95% W/ O2 SATS > 90% ON AVG, DESATS TO 87% WHILE COUGHING. MONITOR SHOWS SR-ST W/ HR 90-110s, BP STABLE. OGT IN PLACE W/ TUBE FEEDS INFUSING AT GOAL RATE. RECTAL TUBE DRAINING BROWN LIQUID STLS TO GRAVITY. TEMP ERAZO PATENT/ DRAINING DARK YELLOW URINE. SKIN CONDITION OVERALL INTACT, Q2H REPOSITIONING TO MAINTAIN SKIN INTEGRITY. WILL CONTINUE TO MONITOR & UPDATE NEEDED.
--- NOTE | 2020-09-27 18:25 | NUR ---
SHIFT SUMMARY: NO ACUTE CHANGES SINCE PRIOR UPDATES. PT REMAINS SEDATED W/ PROPOFOL & INTUBATED. LS DIM T/O, OCCASIONAL COARSENESS W/ CLEARS WELL W/ ETT SUCTIONING. VENT SETTINGS: AC 28/400/15/95% W/ O2 SATS > 92%, DESATS TO 84% W/ COUGHING EPISODE THIS AFTERNOON. MONITOR SHOWS ST W/ HR 100s, BP STABLE. OGT IN PLACE W/ TUBE FEEDS AT GOAL RATE, LOW RESIDUALS. TEMP ERAZO PATENT/ DRAINING CLEAR YELLOW URINE. SKIN CONDITION OVERALL INTACT, Q2H REPOSITIONING TO MAINTAIN SKIN INTEGRITY. WILL CONTINUE TO MONITOR & REPORT OFF TO ONCOMING RN.
--- NOTE | 2020-09-27 20:38 | NUR ---
PATIENT REMAINS INTUBATED AND SEDATED PROPOFOL 55 MCG, TO HELP PATIENT ENEDINA VENT. GRIMACING, AND RESP UP TO HIGH 30'S WITH REPOSITIONING AND ORAL CARE. VENT AC 28, TV 400, PEEP 15, FIO2 95% SUCTIONING THICK HU PLUGS VIA ETT. OG IN PLACE WITH TUBE FEEDING VITAL HP AT GOAL RATE OF 20 CC/HR. RECTAL TUBE REMAINS IN PLACE DRAINING LIQUID BROWN STOOL.
[2020-09-28 04:03] LABS: Base Excess Venous 10.6 mmol/L; Bicarbonate Venous 32.4 mmol/L (24.0-30.0); PCO2 Venous 62.4 mmHg (38-42); PO2 Venous 31.9 mmHg (38-42); pH Blood Venous 7.37 (7.34-7.37)
[2020-09-28 04:10] LABS: BASOPHILS ABSOLUTE AUTO 0.01 K/mm3 (0.00-0.23); BASOPHILS PERCENT AUTO 0 % (0-2); EOSINOPHILS ABSOLUTE AUTO 0.17 K/mm3 (0.00-0.68); EOSINOPHILS PERCENT AUTO 2 % (0-6); Hemoglobin 8.1 g/dL (13.5-17.5); IMMATURE GRAN ABSOLUTE AUTO 0.15 K/mm3 (0.00-0.10); IMMATURE GRAN PERCENT AUTO 2 % (0-1); LYMPHOCYTES ABSOLUTE AUTO 1.02 K/mm3 (0.84-5.20); LYMPHOCYTES PERCENT AUTO 14 % (21-46); MONOCYTES ABSOLUTE AUTO 0.48 K/mm3 (0.16-1.47); MONOCYTES PERCENT AUTO 7 % (4-13); Mean Corpuscular HGB 25.7 pg (26.0-34.0); Mean Corpuscular HGB Conc 28.9 g/dL (31.5-36.5); Mean Corpuscular Volume 89 fL (80-100); NEUTROPHILS ABSOLUTE AUTO 5.51 K/mm3 (1.96-9.15); NEUTROPHILS PERCENT AUTO 75 % (41-73); Platelet Count 160 K/mm3 (150-400); RDW Coefficient Variation 18.9 % (11.7-14.2); RDW Standard Deviation 60.6 fL (35.1-46.3); Red Blood Cell Count 3.15 M/mm3 (4.30-5.90); White Blood Cell Count 7.34 K/mm3 (4.00-11.30)
[2020-09-28 04:26] LABS: Anion Gap 2 mmol/L (6-16); Blood Urea Nitrogen 50 mg/dL (8-24); CO2, Blood 33 mmol/L (21-32); Calcium, Blood 8.6 mg/dL (8.5-10.1); Chloride, Blood 110 mmol/L (98-108); Creatinine, Blood 1.02 mg/dL (0.60-1.20); Glomerular Filtration Rate >60 (60-); Glucose, Blood 133 mg/dL (70-99); Potassium, Blood 4.3 mmol/L (3.5-5.5); Sodium, Blood 145 mmol/L (136-145)
--- NOTE | 2020-09-28 04:34 | NUR ---
PATIENT BIOX DOWN TO 79% HAVING OCCASIONAL COUGH AND STACKING OF BREATH. SUCTIONING MOD AMT OF HU PLUGS, AND BIOX REMAINING LOW 85-86% RT CALLED, PROPOFOL INCREASED TO 60 MCG, AND FENTANYL IV GIVEN. VENT FIO2 100% BIOX CONTINUES 89-90% DOCTOR TONNY CALLED WITH [facility] RESULTS AND GIVEN UPDATE. PEEP INCREASED TO 18, AND CHEST XRAY OBTAINED
--- NOTE | 2020-09-28 05:52 | NUR ---
SUMMARY PATIENT SEDATED WITH PROPOFOL 60 MCG AND FENTANYL IV NEEDED. VENT CHANGED TO AC 28, TV 400, PEEP 18, FIO2 100% BIOX NOW 92%. OG REMAINS IN PLACE WITH VITAL HP AT GOAL RATE OF 20 CC/HR WITH MIN RESIDUALS. RECTAL TUBE CONTINUES TO DRAIN LIQUID BROWN STOOL.
--- NOTE | 2020-09-28 08:25 | NUR ---
ASSUMED CARE REPORT FROM JOSIANE MADRIGAL AT 0700. PT INTUBATED AND SEDATED. VENT SETTINGS AC 28/400/18/100%. LUNGS CLEAR. SMALL AMOUNT OF THICK/HU SECRETIONS FROM ETT. OCCASIONAL COUGH AND DOUBLE STACKING ON VENT. PROPOFOL GTT AT 60 MCG/KG/MIN, FENTANYL PRN. PT UNRESPONSIVE TO PAINFUL STIMULI. SEDATION VACATION NOT DONE D/T NON COMPLIANCE c VENT AND HIGH VENT SETTINGS. ABD OBESE, SOFT, NON TENDER. BT X 4. TUBE FEEDS AT GOAL, 20 ML/HR c 30 ML FLUSH q4 HR. RESIDUALS 5 ML THIS AM. ERAZO PATENT, DRAINING CLEAR YELLOW URINE TO GRAVITY. RECTAL TUBE DRAINING BROWN LIQUID STOOL TO GRAVITY. ST ON MONITOR, RATE 1110'S, BP STABLE. WILL CONTINUE TO MONITOR.
--- NOTE | 2020-09-28 17:12 | NUR ---
SHIFT SUMMARY PT REMAINS INTUBATED AND SEDATED. VENT SETTINGS AC 28/400/18/100%. LUNGS DIM THROUGHOUT. SCANT HU/YELLOW SECRETIONS THROUGH ETT. COUGH REFLEX. PT PRONED AT 0930, TOLERATING WELL. O2 SATS INCREASED TO LOW 90'S. ARM, LEG AND HIP POSITION CHANGED q2, HEAD TURNED q4. WILL CONTINUE TO KEEP IN PRONE POSITION FOR 12 HOURS, PLAN TO SUPINE AT 2130. ABD ROUND, SOFT, NON TENDER, HYPOACTIVE BT. TOLERATING TUBE FEEDS WELL, MINIMAL RESIDUALS. ERAZO PATENT, DRAINING CLEAR YELLOW URINE TO GRAVITY. GENERALIZED EDEMA. DIURESED AND STEROID ADDED THIS SHIFT. BP STABLE, ST ON MONITOR, RATE 100'S. WILL CONTINUE TO MONITOR UNTIL REPORT TO ONCOMING NURSE.
--- NOTE | 2020-09-28 20:53 | NUR ---
ASSUMED CARE REPORT FROM NADEEM MADRIGAL @ 2802. PT INTUBATED AND SEDATED. CURRENTLY PRONED, PER DR. LANCASTER WILL KEEP PRONED THROUGHOUT THE NIGHT TOLERATED. VENT SETTINGS AT AC 28/400/18/100%. LUNGS BILAT UPPER LOBE EXPIRATORY WHEEZE, BASES DIM/CLEAR. SPO2 AT 94%. SMALL AMOUNTS OF THICK, HU/WHITE SPUTUM. PROPOFOL GTT @60MCG/KG/MIN, FENTANYL PRN ADJUNCT. PT IS UNRESPONSIVE TO STIMULI. TUBE FEED AT GOAL OF 20ML/HR WITH 30ML Q4H FLUSH. RESIDUALS LESS THAN 5ML. ABD REMAINS DISTENDED BUT DIFFICULT TO ASSESS DUE TO PRONING. RECTAL TUBE DRAINING BROWN LIQUID STOOL. ERAZO PATENT, DRAINING TO GRAVITY, YELLOW/CLEAR URINE. HR IN 110S, BLOOD PRESSURES STABLE, ON MONITOR. SOME BRUISING NOTED ON RIGHT UPPER EXTREMITY. WILL CONTINUE TO MONITOR.
--- NOTE | 2020-09-28 23:49 | NUR ---
WHEN REPOSITIONING PT, NOTED DECREASE IN SPO2 DOWN INTO THE 80'S. DEEP SUCTION DONE WITH RETURN OF BLOOD TINGED SPUTUM. PRN FENTANYL GIVEN, SPO2 RETURNED TO 90'S. PT REMAINS SEDATED AND TOLERATING VENT WELL.
[2020-09-29 03:38] LABS: pH Blood Arterial 7.25 (7.35-7.45)
[2020-09-29 03:39] LABS: PCO2 Arterial 79.5 mmHg (35-45); PO2 Arterial 86.2 mmHg (80-100)
[2020-09-29 05:15] LABS: BASOPHILS ABSOLUTE AUTO 0.01 K/mm3 (0.00-0.23); BASOPHILS PERCENT AUTO 0 % (0-2); EOSINOPHILS ABSOLUTE AUTO 0.12 K/mm3 (0.00-0.68); EOSINOPHILS PERCENT AUTO 1 % (0-6); Hematocrit 26.8 % (37.0-53.0); Hemoglobin 7.7 g/dL (13.5-17.5); IMMATURE GRAN PERCENT AUTO 2 % (0-1); LYMPHOCYTES ABSOLUTE AUTO 1.05 K/mm3 (0.84-5.20); LYMPHOCYTES PERCENT AUTO 12 % (21-46); MONOCYTES ABSOLUTE AUTO 0.56 K/mm3 (0.16-1.47); MONOCYTES PERCENT AUTO 6 % (4-13); Mean Corpuscular HGB 26.1 pg (26.0-34.0); Mean Corpuscular HGB Conc 28.7 g/dL (31.5-36.5); Mean Corpuscular Volume 91 fL (80-100); Mean Platelet Volume 11.4 fL (9.1-12.4); NEUTROPHILS ABSOLUTE AUTO 7.09 K/mm3 (1.96-9.15); NEUTROPHILS PERCENT AUTO 79 % (41-73); Platelet Count 159 K/mm3 (150-400); RDW Coefficient Variation 18.5 % (11.7-14.2); RDW Standard Deviation 59.8 fL (35.1-46.3); Red Blood Cell Count 2.95 M/mm3 (4.30-5.90); White Blood Cell Count 9.03 K/mm3 (4.00-11.30)
[2020-09-29 05:39] LABS: Magnesium, Blood 2.3 mg/dL (1.6-2.4)
[2020-09-29 05:40] LABS: Anion Gap 3 mmol/L (6-16); Blood Urea Nitrogen 56 mg/dL (8-24); Bun/Creatinine Ratio 53.3 (12.0-20.0); CO2, Blood 33 mmol/L (21-32); Calcium, Blood 8.7 mg/dL (8.5-10.1); Chloride, Blood 110 mmol/L (98-108); Creatinine, Blood 1.05 mg/dL (0.60-1.20); Glomerular Filtration Rate >60 (60-); Glucose, Blood 145 mg/dL (70-99); Phosphorus, Blood 4.4 mg/dL (2.5-4.9); Potassium, Blood 4.7 mmol/L (3.5-5.5); Sodium, Blood 146 mmol/L (136-145)
--- NOTE | 2020-09-29 05:43 | NUR ---
PT CHECKED BY R/T, ASKED THAT A TUBE CHECK BE DONE. HE REPORTS THAT THE ETT IS MEASURING AT 23CM NOT THE RECOMMENDED 26 CM. THE ETT IS RETAPED IN PROPER POSITION. PT CONTINUES TO HAVE RED TINGED RETURN VIA ET SUCTIONING AND INCREASED COUGHING IF NOT MEDICATED REGULARLY WITH FENTANYL.
--- NOTE | 2020-09-29 06:25 | NUR ---
PT REMAINS INTUBATED AND SEDATED. UNRESPONSIVE TO PAINFUL STIMULI. PROPOFOL GTT @60 MCG/KG/MIN. VENT SETTINGS AC 28/420/18/100%, SATS REMAIN >90%, NOTED TO DESAT WITH REPOSITIONING. PT REMAINED PRONED THROUGHOUT SHIFT PER DR. LANCASTER. LUNGS CLEAR IN BILATERAL UPPER LOBES, MILDLY COURSE IN BILATERAL BASES. MODERATE AMOUNTS OF BLOODY, THICK SPUTUM. ST ON MONITOR WITH RATE IN 100-110'S. PRESSURES REMAIN STABLE. TEMP ERAZO PATENT, DRAINING TO GRAVITY WITH ELI URINE. RECTAL TUBE DRAINING BROWN, LIQUID STOOL. SMALL NOTABLE ABRASION TO SCROTUM. NO SEDATION VACATION DONE DUE TO PATIENT CONDITION. WILL GIVE REPORT TO ONCOMING RN.
--- NOTE | 2020-09-29 09:00 | NUR ---
ASSUMED CARE REPORT FROM PATI/KASSANDRA MADRIGAL. PT INTUBATED AND SEDATED. VENT SETTINGS AC 28/420/18/100%. LUNGS CLEAR, DIM IN BASES. RED THIN SECRETIONS OUT ETT. PROPOFOL GTT AT 60 MCG/KG/MIN. PT c NO COUGH/GAG/SWALLOW REFLEX. OCCASIONALLY DOUBLE STACKS ON VENT. MEDICATED c FENTANYL PRN. PT PRONED AT SHIFT CHANGE, REPOSITIONED SUPINE AT 0830. TOLERATED WELL, DESATED TO MID 80'S FOR SHORT PERIOD OF TIME. LOW 90'S AT THIS TIME. SCLERA EDEMA TO RIGHT EYE. ABD OBESE, SOFT, NON TENDER. BT HYPOACTIVE. TUBE FEEDS DECREASED TO 15 ML/HR c 30 ML FLUSH q4 HR. MINIMAL RESIDUALS. ERAOZ PATENT, DRAINING YELLOW URINE c SEDIMENT TO GRAVITY. RECTAL TUBE DRAINING LIQUID BROWN STOOL OUT. PICC TO [facility], DRESSING C/D/I. ST ON MONITOR, RATE 100'S. BP STABLE. WILL CONTINUE TO MONITOR.
[2020-09-29 16:26] LABS: Source, Urine Catheter
[2020-09-29 16:29] LABS: Appearance, Urine Turbid (Clear); Bilirubin, Urine Neg (Neg); Blood, Urine 2+ (Neg); Color, Urine Yellow (P-Yellow); Glucose Qualitative, Urine Neg (Neg); Ketones, Urine Neg (Neg); Leukocyte Esterase, Urine 2+ (Neg); Nitrite, Urine Neg (Neg); Protein, Urine 2+ (Neg); Urobilinogen, Urine NORM (Normal)
[2020-09-29 16:58] LABS: Amorphous Heavy (0-Heavy); Granular Casts 25-50 /lpf (0)
[2020-09-29 16:59] LABS: Bacteria Many /hpf; Squamous Epithelial Cells Rare /hpf (Few); Yeast/Fungi Urine Mod /hpf
--- NOTE | 2020-09-29 17:09 | NUR ---
SHIFT SUMMARY PT REMAINS INTUBATED AND SEDATED. VENT SETTINGS UNCHANGED AC 28/420/18/100%. LUNGS DIMINISHED THROUGHOUT. SCANT RED THIN SECERTIONS THROUGH ETT. OCCASIONAL COUGH. PROPOFOL GTT AT 60 MCG/KG/MIN, NO SEDATION VACATION COMPLETED THIS SHIFT D/T PT CONDITION. PT DESATS TO MID 80'S c MINIMAL MOVEMENT. RECOVERS TO LOW 90'S. NO RESPONSE TO PAINFUL STIMULI. PT SUPINE AT 0930, PRONED AT 1630. PLAN TO LEAVE PRONE FOR 16 HOURS. EYE CARE AND SKIN CARE COMPLETE PRIOR TO PRONING. BED BATH ALSO COMPLETE. TUBE FEEDS AT GOAL 15 ML/HR, REDUCED THIS SHIFT. MINIMAL RESIDUALS. ERAZO PATENT, DRAINING YELLOW URINE c SEDIMENT, CLOUDY, 1350ML OUT THIS SHIFT. CULTURE SENT TO LAB. RECTAL TUBE PATENT, DRAINING TO GRAVITY. VSS. WILL CONTINUE TO MONITOR UNTIL REPORT TO ONCOMING NURSE.
--- NOTE | 2020-09-29 20:06 | NUR ---
ASSUMED CARE RECEIVED REPORT FROM NADEEM MADRIGAL. PT INTUBATED AND SEDATED. VENT SETTINGS AT AC 28/420/18/100%. LUNGS CLEAR, DIM IN BASES. SCANT SECRETIONS IN ETT TUBE, PINK/RED TINGED. SATS CURRENTLY IN LOW 90'S. PROPOFOL GTT AT 60MCG/KG/MIN. PT IS CURRENTLY PRONED AND PLAN IS TO KEEP PRONE T/O ENTIRE SHIFT. GAVE PRN FENTANYL ADJUNCT TO SEDATION. ABDOMEN IS OBESE AND BOWEL TONES HYPOACTIVE. TUBE FEED AT ADJUSTED GOAL OF 15ML/HR WITH 30ML Q4 FLUSHES. MINIMAL RESIDUALS. TEMP ERAZO PATENT, DRAINING TO GRAVITY, URINE ELI AND CLOUDY. RECTAL TUBE INTACT, DRAINING LIQUID BROWN STOOL. PICC IN RIGHT UP WNL. ST ON MONITOR, RATE IN 100'S. BP IS STABLE.
[2020-09-30 04:21] LABS: BASOPHILS ABSOLUTE AUTO 0.01 K/mm3 (0.00-0.23); BASOPHILS PERCENT AUTO 0 % (0-2); EOSINOPHILS ABSOLUTE AUTO 0.17 K/mm3 (0.00-0.68); EOSINOPHILS PERCENT AUTO 2 % (0-6); Hematocrit 25.5 % (37.0-53.0); Hemoglobin 8.4 g/dL (13.5-17.5); IMMATURE GRAN ABSOLUTE AUTO 0.12 K/mm3 (0.00-0.10); IMMATURE GRAN PERCENT AUTO 2 % (0-1); LYMPHOCYTES ABSOLUTE AUTO 0.74 K/mm3 (0.84-5.20); LYMPHOCYTES PERCENT AUTO 9 % (21-46); MONOCYTES ABSOLUTE AUTO 0.39 K/mm3 (0.16-1.47); MONOCYTES PERCENT AUTO 5 % (4-13); Mean Corpuscular HGB 29.6 pg (26.0-34.0); Mean Corpuscular HGB Conc 32.9 g/dL (31.5-36.5); Mean Corpuscular Volume 90 fL (80-100); Mean Platelet Volume 12.7 fL (9.1-12.4); NEUTROPHILS ABSOLUTE AUTO 6.62 K/mm3 (1.96-9.15); NEUTROPHILS PERCENT AUTO 82 % (41-73); Platelet Count 129 K/mm3 (150-400); RDW Coefficient Variation 18.4 % (11.7-14.2); RDW Standard Deviation 58.9 fL (35.1-46.3); Red Blood Cell Count 2.84 M/mm3 (4.30-5.90); White Blood Cell Count 8.05 K/mm3 (4.00-11.30)
[2020-09-30 04:45] LABS: Anion Gap 3 mmol/L (6-16); Blood Urea Nitrogen 57 mg/dL (8-24); CO2, Blood 32 mmol/L (21-32); Calcium, Blood 7.8 mg/dL (8.5-10.1); Chloride, Blood 104 mmol/L (98-108); Creatinine, Blood 0.95 mg/dL (0.60-1.20); Glomerular Filtration Rate >60 (60-); Glucose, Blood 145 mg/dL (70-99); Potassium, Blood 4.9 mmol/L (3.5-5.5); Sodium, Blood 139 mmol/L (136-145)
[2020-09-30 05:42] LABS: PCO2 Arterial 68.9 mmHg (35-45); PO2 Arterial 74.1 mmHg (80-100); pH Blood Arterial 7.33 (7.35-7.45)
--- NOTE | 2020-09-30 06:22 | NUR ---
PT REMAINS INTUBATED AND SEDATED. PT HAS REMAINED PRONED SINCE 1630 YESTERDAY WITH PLANS TO MOVE TO SUPINE THIS MORNING. NO SIGNIFICANT CHANGES THIS SHIFT. VENT AT AC 28/420/18/100%, SATS >90%, HOWEVER DESATS QUICKLY TO 70-80'S WITH ANY REPOSITIONING. LUNGS CLEAR BUT DIMINISHED THROUGHOUT. MINIMAL SECRETIONS. PROPOFOL GTT 60MCG/KG/MIN, NO SEDATION VACATION COMPLETED DUE TO PATIENT'S CONDITION. REMAINS UNRESPONSIVE TO PAINFUL STIMULI. TUBE FEED AT GOAL OF 15ML/HR WITH 30ML Q4H FLUSH. MINIMAL RESIDUALS, <5ML. TEMP ERAZO PATENT, DRAINING TO GRAVITY, CLOUDY YELLOW URINE, 1000ML OUT THIS SHIFT. RECTAL TUBE PATENT, DRAINING LIQUID BROWN STOOL. ST WITH RATE IN 100'S, BP STABLE. WILL GIVE REPORT TO ONCOMING RN.
--- NOTE | 2020-09-30 10:08 | NUR ---
CARE ASSUMED ASSESSMENTS COMPLETED. PT REMAINS IN PRONE POSITION, SEDATED WITH PROPOFOL 60MCG/KG/MIN, UNRESPONSIVE TO PAINFUL STIMULI, NO MOVEMENT OR TRACKING. IRASEMA. LS CLEAR, DIMINISHED IN BASES. VENT AC 28, Vt 420, PEEP 18, FIO2 100%. RR 28-29, SPO2 95%, PEAK PRESSURES MID 30'S. NO SECRETIONS FROM ETT. HR SIT, MAP 70'S, PULSES STRONG. EDEMA NOTED TO EXTREMS, SCLERA, FACE, AND MINIMALLY TO SCROTUM. EXTREMS ELEVATED. BT HYPOACTIVE, VITAL HP AT 15ML/HR VIA OGT. RECTAL TUBE IN PLACE WITH BROWN STOOL, MEPILEX TO R BUTTOCK REPLACED FOR PRESSURE INJURY APPEARING TO BE FROM RECTAL TUBE, SKIN INTACT. ERAZO PATENT, URINE YELLOW, CLOUDY WITH SEDIMENT. AM CARES AND CATH CARE COMPLETED, AM MEDS ADMINISTERED. STAFF AND RT IN TO REPOSITION PT INTO SUIPNE POSITION. SPO2 DECREASED TO 81%, TOOK APPROXIMATELY 30 MINUTES TO RECOVER SPO2 TO 89%. RR REMAINS 28-29, PEAK PRESSURES UNCHANGED. CXR COMPLETED, LIMBS ELEVATED, FAN ON FOR LOW GRADE TEMP.
--- NOTE | 2020-09-30 19:00 | NUR ---
ASSUMED CARE ASSUMED CARE OF PATIENT. REMAINS INTUBATED- AC 28, TV 420, PEEP 18, FIO2 100%. RR 28. PROPOFOL AT 60MCG/KG/MIN FOR VENT TOLERANCE. MONITOR SHOWS ST, RATE 100-105. BP STABLE. TEMP 99.2F. OG WITH VITAL HIGH PROTEIN AT 15CC/HR (GOAL RATE). 30CC H20 FLUSH Q4H. ERAZO PATENT AND DRAINING TO GRAVITY. OFELIA PICC NOTED. REMAINS IN CONTACT/[place] ISOLATION FOR COVID-19. SEE SHIFT ASSESSMENT FOR FULL ASSESSMENT.
--- NOTE | 2020-09-30 19:06 | NUR ---
END OF SHIFT PT HAD UNEVENTFUL AFTERNOON, REMAINS UNRESPONSIVE, PROPOFOL GTT REMAINS 60MCG FOR VENT TOLERANCE. LS AND VENT SETTINGS UNCHANGED, HR REMAINS SIT 100-110 WITH STABLE BP. SPO2 DECREASED TO 70'S-80'S WITH REPOSITIONING, HAS REMAINED 85-89% THIS AFTERNOON DESPITE SUCTIONING. PT'S SISTER UPDATED BY DR. GOLD, PT NOW DNR.
--- NOTE | 2020-09-30 22:15 | NUR ---
DECREASED O2 SATS O2 SATS DROPPED TO 83-85% AFTER REPOSITIONING AND HAS NOT RECOVERED. DISCUSSED WITH DR. GOLD- PLAN IS TO CONTINUE CURRENT TREATMENT AT THIS TIME. NO NEW ORDERS GIVEN.
[2020-10-01 04:21] LABS: BASOPHILS ABSOLUTE AUTO 0.02 K/mm3 (0.00-0.23); BASOPHILS PERCENT AUTO 0 % (0-2); EOSINOPHILS ABSOLUTE AUTO 0.12 K/mm3 (0.00-0.68); EOSINOPHILS PERCENT AUTO 1 % (0-6); Hematocrit 29.4 % (37.0-53.0); Hemoglobin 8.4 g/dL (13.5-17.5); IMMATURE GRAN PERCENT AUTO 2 % (0-1); LYMPHOCYTES ABSOLUTE AUTO 0.96 K/mm3 (0.84-5.20); LYMPHOCYTES PERCENT AUTO 10 % (21-46); MONOCYTES ABSOLUTE AUTO 0.47 K/mm3 (0.16-1.47); MONOCYTES PERCENT AUTO 5 % (4-13); Mean Corpuscular HGB 25.9 pg (26.0-34.0); Mean Corpuscular HGB Conc 28.6 g/dL (31.5-36.5); Mean Corpuscular Volume 91 fL (80-100); Mean Platelet Volume 12.2 fL (9.1-12.4); NEUTROPHILS ABSOLUTE AUTO 7.94 K/mm3 (1.96-9.15); NEUTROPHILS PERCENT AUTO 82 % (41-73); NRBC ABSOLUTE 0.02 K/mm3 (0.00-0.02); NRBC Auto 0.2 /100 WBC (0.0-0.2); Platelet Count 144 K/mm3 (150-400); RDW Coefficient Variation 18.3 % (11.7-14.2); RDW Standard Deviation 58.6 fL (35.1-46.3); Red Blood Cell Count 3.24 M/mm3 (4.30-5.90); White Blood Cell Count 9.71 K/mm3 (4.00-11.30)
[2020-10-01 04:43] LABS: Albumin, Blood 1.4 g/dL (3.4-5.0); Anion Gap 0 mmol/L (6-16); Blood Urea Nitrogen 69 mg/dL (8-24); Bun/Creatinine Ratio 56.1 (12.0-20.0); CO2, Blood 36 mmol/L (21-32); Chloride, Blood 110 mmol/L (98-108); Creatinine, Blood 1.23 mg/dL (0.60-1.20); Glomerular Filtration Rate 58 (60-); Glucose, Blood 144 mg/dL (70-99); Phosphorus, Blood 3.7 mg/dL (2.5-4.9); Potassium, Blood 4.1 mmol/L (3.5-5.5); Sodium, Blood 146 mmol/L (136-145)
--- NOTE | 2020-10-01 05:00 | NUR ---
SEDATION PROPOFOL OFF AT THIS TIME FOR SBT. RT AT BEDSIDE.
--- NOTE | 2020-10-01 06:42 | NUR ---
SHIFT SUMMARY REMAINS INTUBATED- AC 28, TV 420, PEEP 18, FIO2 100%. O2 SATS LOW TO MID 80s T/O NOC. SATS DROP TO LOW 70s WITH ANY REPOSITIONING AND THEN IS DIFFICULT TO RECOVER. DR. GOLD IS AWARE OF LOW SATS. SEDATED WITH PROPOFOL BETWEEN 50-60MCG/KG/MIN FOR VENT TOLERANCE- NOW INFUSING AT 50MCG/KG/MIN. ALSO MEDICATED WITH FENTANYL APPROXIMATELY EVER 2-3 HOURS FOR VENT TOLERANCE. PT REMAINS UNRESPONSIVE TO STIMULI. MONITOR SHOWS ST, RATE 100-110s. BP STABLE. TMAX 99.8F. OG WITH VITAL HIGH PROTEIN AT GOAL RATE OF 15CC/HR. OG RESIDUALS <10CC. RECTAL TUBE PATENT- 50CC LIQUID STOOL. ERAZO PATENT AND DRAINING TO GRAVITY. WILL REPORT TO ONCOMING RN WHEN AVAILABLE.
--- NOTE | 2020-10-01 10:02 | NUR ---
CARE OF PT ASSUMED AT 0700. PT SEDATED ON PROPOFOL AT 50MCG TO TOLERATED MECH VENT. PT REQUIRES FENT PUSHES TO ENEDINA VENT WELL. PT BECOMES ASYNCHRONIZED W VENT, STACKING, COUGHING, ETC. RESP INCREASE >30. PT SATS 80-84%. PT TURNED MINIMALLY TO LEFT SIDE, SATS DECREASED TO 64% AND TOOK ~ 5MIN TO RAISE UP TO 80%. DR GOLD NOTIIFED. FAMILY CALLED AND UPDATED BY WEB CONTENT EXECUTIVE. PT DNR, FAMILY WILL CONSIDER COMFORT CARE IF PT XCONTINUES TO DECLINE. FIO2 AT 100%, PEEP AT 18. PT IS UNRESTRAINED, NO PURPOSEFUL MOVEMENT NOTED. DR GOLD IN TO SEE PT; FULL UPDATE GIVEN.
--- NOTE | 2020-10-01 12:24 | NUR ---
PT DOES NOT TOLERATE TURNS WELL. UNABLE TO TURN PT COMPLETELY FROM SIDE TO SIDE SATS DECREASE SIGNIFICANTLY W ANY POSITION CHANGE. DR GOLD AWARE. PEEP INCREASED T0 [address] GOLD. SATS 78-81%. FENT GIVEN TO HELP PT TOERATE VENT. PRIOR TO FENT PT USES EXCESSORY MUSCLE, IS ASYNCHRONOUS W VENT, W HIGH RESP RATE, AND STACKING ON VENT. FENT HELPS TO RESOLVES SOME OF THESE ISSUES.
--- NOTE | 2020-10-01 18:31 | NUR ---
SATS HAVE NOT IMPROVED THIS SHIFT AND REMAIN IN LOW 80'S. BP STABLE. PROPOFOL REMAINS AT 50MCG. PT REQUIRED SEVERAL DOSES OF FENT TO TOLERATE VENT. NO PURPOSEFUL MOVEMENT NOTED THIS SHIFT. PT HAS COUGH AND POOR GAG, NO SWALLOW. TOLERATING TUBE FEEDS.
--- NOTE | 2020-10-01 19:00 | NUR ---
ASSUMED CARE ASSUMED CARE OF PATIENT. REMAINS INTUBATED- AC 28, TV 420, PEEP 20, FIO2 100%. SEDATED WITH PROPOFOL AT 50MCG/KG/MIN FOR VENT TOLERANCE. PT IS UNRESPONSIVE TO NOXIOUS STIMULI. ASSUMED CARE OF PATIENT. MONITOR SHOWS ST, RATE 110s. BP STABLE. TEMP 100.6F. OG WITH VITAL HIGH PROTEIN AT 15CC/HR (GOAL RATE). 30CC H20 FLUSH Q4H. ERAZO PATENT AND DRAINING TO GRAVITY. OFELIA PICC NOTED. REMAINS IN CONTACT/[place] ISOLATION FOR COVID-19. SEE SHIFT ASSESSMENT FOR FULL ASSESSMENT.
[2020-10-02 05:41] LABS: BASOPHILS ABSOLUTE AUTO 0.04 K/mm3 (0.00-0.23); BASOPHILS PERCENT AUTO 0 % (0-2); EOSINOPHILS ABSOLUTE AUTO 0.08 K/mm3 (0.00-0.68); EOSINOPHILS PERCENT AUTO 1 % (0-6); Hematocrit 27.7 % (37.0-53.0); Hemoglobin 7.9 g/dL (13.5-17.5); IMMATURE GRAN ABSOLUTE AUTO 0.29 K/mm3 (0.00-0.10); IMMATURE GRAN PERCENT AUTO 2 % (0-1); LYMPHOCYTES ABSOLUTE AUTO 1.37 K/mm3 (0.84-5.20); LYMPHOCYTES PERCENT AUTO 9 % (21-46); MONOCYTES ABSOLUTE AUTO 0.89 K/mm3 (0.16-1.47); MONOCYTES PERCENT AUTO 6 % (4-13); Mean Corpuscular HGB 26.1 pg (26.0-34.0); Mean Corpuscular HGB Conc 28.5 g/dL (31.5-36.5); Mean Corpuscular Volume 91 fL (80-100); Mean Platelet Volume 11.9 fL (9.1-12.4); NEUTROPHILS ABSOLUTE AUTO 12.03 K/mm3 (1.96-9.15); NEUTROPHILS PERCENT AUTO 82 % (41-73); NRBC Auto 0.7 /100 WBC (0.0-0.2); Platelet Count 168 K/mm3 (150-400); RDW Coefficient Variation 18.7 % (11.7-14.2); RDW Standard Deviation 61.7 fL (35.1-46.3); Red Blood Cell Count 3.03 M/mm3 (4.30-5.90)
[2020-10-02 05:56] LABS: Albumin, Blood 1.3 g/dL (3.4-5.0); Anion Gap 5 mmol/L (6-16); Blood Urea Nitrogen 97 mg/dL (8-24); Bun/Creatinine Ratio 44.1 (12.0-20.0); CO2, Blood 32 mmol/L (21-32); Chloride, Blood 108 mmol/L (98-108); Glomerular Filtration Rate 30 (60-); Glucose, Blood 151 mg/dL (70-99); Phosphorus, Blood 5.9 mg/dL (2.5-4.9); Potassium, Blood 4.4 mmol/L (3.5-5.5); Sodium, Blood 145 mmol/L (136-145)
--- NOTE | 2020-10-02 06:29 | NUR ---
SHIFT SUMMARY NO ACUTE CHANGES. REMAIN INTUBATED- VENT SETTINGS UNCHANGED. PROPOFOL CONTINUES AT 50MCG/KG/MIN AND ALSO MEDICATED WITH FENTNAYL 100MCG IV X 4 DOSES FOR VENT TOLERANCE. PT REMAINS UNRESPONSIVE TO NOXIOUS STIMULI. MONITOR SHOWS ST, RATE 100-110s. MAP OCCASIONALLY 58-60 AFTER FENTANYL GIVEN. OTHERWISE MAP IS >65. TMAX 100.8F. MEDICATED WITH TYLENOL 650MG PT X 2 FOR FEVER. OG WITH VITAL HIGH PROTEIN AT GOAL RATE OF 15CC/HR. RESIDUALS <10CC. RECTAL TUBE PATENT- LIQUID BROWN STOOL. ERAZO PATENT AND DRAINING TO GRAVITY. WILL REPORT TO ONCOMING RN WHEN AVAILABLE.
--- NOTE | 2020-10-02 09:07 | NUR ---
CARE OF PT ASSUMED AT 0700. PT REMAINS ON PROPOFOL AT 50MCG FOR MECH VENT. PT IS STILL REQUIRING PUSHES OF FENT WELL TO TOLERATE VENT. PT GIVEN PARTIAL BATH THIS AM, NO PURPOSEFUL MOVEMENT NOTED. PT'S SATS DROPPED TO 78% WITH TURN AND QUICKLY RETURNED TO 81%. PT HAS NOT BEEN OVER 81% THSI SHIFT, FIO2 IS AT 100%, PEEP IS 20.
--- NOTE | 2020-10-02 11:19 | NUR ---
DR GOLD IN TO SEE PT. FULL REPORT GIVEN. LASIX STARTED BID FOR INCREASING CREATINE, INCREASED EDEMA.
--- NOTE | 2020-10-02 12:18 | NUR ---
PT'S SISTER CATARINO UPDATED. CATARINO AWARE OF PT'S PERSISTENT HYPOXIA. PER SISTER FAMILY MAY PLAN ON REMOVING PT FROM VENT ON SATURDAY FOR COMFORT CARE.
--- NOTE | 2020-10-02 18:52 | NUR ---
POOR URINE OUTPUT DESPITE INCREASE IN LASIX. SATS REMAIN AROUND 80%. THICK PINK SPUTUM SUCTIONED FROM ETT W EACH TURN. PT CONT TO TOLERATE TUBE FEEDS. 500CC LIQUID STOOL TO RECTAL BAG THIS SHIFT. NO PURPOSEFUL MOVEMENT NOTED. NO GAG, NO SWALLOW. PT COUGHS OCC. FENT GIVEN X 2 FOR VENT TOLERANCE.
--- NOTE | 2020-10-02 20:22 | NUR ---
PATIENT INTUBATED AND SEDATED PROPOFOL 50 MCG, RESP UP TO LOW 30'S FROM 28 WITH SUCTIONING AND REPOSITIONING, AND COUGH WITH SUCTIONING NO MOVEMENT SEEN IN EXTREMITIES. VENT AC 28, TV 420, PEEP 20, FIO2 100% SUCTIONING MIN BLOOD TINGED WHITE SPUTUM. OG IN PLACE WITH TUBE FEEDING VITAL HP AT GOAL RATE OF 15 CC/HR. RECTAL TUBE REMAINS IN PLACE DRAINING LIQUID BROWN STOOL.
--- NOTE | 2020-10-03 00:24 | NUR ---
DOCTOR ASIF NOTIFIED OF BP DROPPING 65/47 MAP 52, 74/49 MAP 55 AFTER PROPOFOL OFF. NO URINE OUTPUT AFTER 2200 LASIX. NO CHANGES ORDERS AT THIS TIME.
--- NOTE | 2020-10-03 03:54 | NUR ---
AT 0230, BILINGUAL LEGAL ASSISTANT READING 0222 MONITOR SHOWING HEART RATE DOWN TO 67 FROM 99 TO 105 T/O NIGHT AND QRS WIDENING. CALL PLACED TO PATIENTS SISTER AND CAREGIVER CATARINO AND SHE WAS NOTIFIED OF HIS CHANGE AND THAT IT WAS GETTING CLOSE TO TIME THAT HE MAY PASS. DUE TO HER BEING SICK WITH COVID SHE DECIDED TO STAY HOME AFTER I WAS ABLE TO LET HER KNOW THAT I WOULD STAY AT HIS BEDSIDE FOR HER. AT 0244 PATIENT NO LONGER HAD PULSE AND MONITOR SHOWING ASYSTOLE BILINGUAL LEGAL ASSISTANT AGAIN 7 MIN SLOWER THAN COMPUTER TIME. TOD [phone] PATIENTS SISTER CATARINO, DOCTOR KITA, DOCTOR ASIF, AND NURSING CHILDR[employer]ISTRIES DIRECTOR NOTIFIED OF TOD. 0345 RECTAL TUBE, ERAZO AND ETT REMOVED
== END 2020-10-03 02:44 | DRG 870 ==
LOC: ER 11:59 → ICUW 16:35
PROVIDERS: Emergency Medicine; Family Medicine; Internal Medicine; Internal Medicine Critical Care Medicine; Internal Medicine Pulmonary Disease; Student in an Organized Health Care Education/Training Program; ADMIT Internal Medicine
PROC: 8E0ZXY6 Isolation (ICD-10-PCS; principal; 2020-09-17)
PROC: 3E0333Z Introduction of Anti-inflammatory into Peripheral Vein, Percutaneous Approach (ICD-10-PCS; 2020-09-18)
PROC: XW033E5 Introduction of Remdesivir Anti-infective into Peripheral Vein, Percutaneous Approach, New Technology Group 5 (ICD-10-PCS; 2020-09-18)
PROC: 5A09557 Assistance with Respiratory Ventilation, Greater than 96 Consecutive Hours, Continuous Positive Airway Pressure (ICD-10-PCS; 2020-09-18)
PROC: 0BH18EZ Insertion of Endotracheal Airway into Trachea, Via Natural or Artificial Opening Endoscopic (ICD-10-PCS; 2020-09-20)
PROC: 5A1955Z Respiratory Ventilation, Greater than 96 Consecutive Hours (ICD-10-PCS; 2020-09-20)
PROC: 02HV33Z Insertion of Infusion Device into Superior Vena Cava, Percutaneous Approach (ICD-10-PCS; 2020-09-27)
DX: A41.89 Other specified sepsis (principal); I21.A1 Myocardial infarction type 2; J96.01 Acute respiratory failure with hypoxia; J12.82 Pneumonia due to coronavirus disease 2019; U07.1 COVID-19; N17.0 Acute kidney failure with tubular necrosis; J15.6 Pneumonia due to other Gram-negative bacteria; J15.1 Pneumonia due to Pseudomonas; J96.02 Acute respiratory failure with hypercapnia; N39.0 Urinary tract infection, site not specified; E87.2 Acidosis; K92.2 Gastrointestinal hemorrhage, unspecified; A41.01 Sepsis due to Methicillin susceptible Staphylococcus aureus; I46.8 Cardiac arrest due to other underlying condition; Z51.5 Encounter for palliative care; Z66 Do not resuscitate; R65.20 Severe sepsis without septic shock; E11.9 Type 2 diabetes mellitus without complications; I10 Essential (primary) hypertension; E03.9 Hypothyroidism, unspecified; E83.39 Other disorders of phosphorus metabolism; E78.5 Hyperlipidemia, unspecified; E66.9 Obesity, unspecified; K21.9 Gastro-esophageal reflux disease without esophagitis; Z78.1 Physical restraint status; Z68.39 Body mass index [BMI] 39.0-39.9, adult; I25.2 Old myocardial infarction; Z87.19 Personal history of other diseases of the digestive system; Z79.82 Long term (current) use of aspirin; Z79.899 Other long term (current) drug therapy
CPT/HCPCS: 0202U; 31500; 31720; 36415; 36569; 36600; 51702; 71045; 71260; 80048; 80053; 80069; 81001; 82330; 82803; 82947; 83605; 83735; 83880; 84100; 84145; 84484; 85025; 85610; 85730; 86850; 86900; 86901; 87040; 87070; 87077; 87086; 87106; 87186; 87205; 93005; 93010; 93306; 94002; 94003; 94640; 94660; 97162; 97166; 97530; 99283; A9270; C1751; C9113; J0330; J0456; J0696; J1100; J1650; J1815; J1940; J2060; J2185; J2543; J2704; J3010; J3260; J3370; J7030; J7040; J7050; J7060; J7070; J7120; Q9967; U0004